=== PATIENT | female | born 1935 | race Caucasian/White ===

== ENCOUNTER 2016-11-24 12:50 | Observation (INO) | payer OTHER ==
--- NOTE | 2016-11-24 13:07 | CPEKG ---
Heart Rate: 83 RR Interval: 723 P-R Interval: 172 QRSD Interval: 82 QT Interval: 392 QTC Interval: 461 P Jenner: 76 QRS Jenner: 46 T Wave Jenner: 48 EKG Severity - NORMAL ECG - EKG Impression: SINUS RHYTHM Electronically Signed By: Mellissa Anton 24-Nov-2016 15:41:22
--- NOTE | 2016-11-24 13:18 | EDPHY ---
H & P HPI/ROS: CHIEF COMPLAINT: Dizziness HISTORY OF PRESENT ILLNESS: The patient is a 81-year-old female with history of hypertension, postoperative PE, and pacemaker for bradycardia (per her report) who presents with acute dizziness. The patient reports feeling "woozy and unstable". She denies vertigo or spinning. She felt that her gait was unsteady. She does not have headache. She denies numbness or weakness. Her blood pressure was elevated today at 189/108in triage. The patient states she took her daily Diltiazem this morning, she takes lisinopril at night. Her medication list includes Lasix but she is not taking that. She feels short of breath, particularly with exertion. This has been present for the last few weeks. She has left-sided chest pain that she feels is musculoskeletal. It is not pleuritic. Her chest pain located in the upper left lateral chest. The patient had 10 days of diarrhea after returning from [facility]. For the past week she reports infrequent bowel movements. She denies bloody stools. No urinary complaints. No headache, abdominal pain. The patient had a PE after shoulder surgery in May 2016, she has been off anticoagulants for over a month now. REVIEW OF SYSTEMS: A 10 point review of systems was performed and is negative with the exception of the elements mentioned in the history of present illness. Source: Patient, Family Exam Limitations: No limitations - Medical/Surgical History Hx Asthma: No Hx Chronic Respiratory Disease: Yes Hx Diabetes: No Hx Cardiac Disease: No Hx Renal Disease: No Hx Cirrhosis: No Hx Alcoholism: No Hx HIV/AIDS: No Hx Splenectomy or Spleen Trauma: No Other PMH: 1. restless leg syndrome. 2. Hypertension. 3. Sleep apnea. 4. Pacemaker placement. 5. Shoulder surgery. 6. PE after shoulder surgery - Social History Smoking Status: Former smoker Alcohol Use: Rarely Drug Use: None Additional Social History: . She and her spend the [place] in [place] and [place] in [place]. She is a retired nurse. - Physical Exam Exam: General Appearance: Alert, no acute distress. Blood pressure 189/108. Eyes: Pupils equal and round, no conjunctival injection, no discharge. Anicteric. No nystagmus. ENT, Mouth: Mucous membranes are moist, no oropharyngeal erythema or edema. Neck: No lymphadenopathy, supple. No jugular venous distention. Respiratory: Lungs are clear to auscultation; no wheezes, rales, or rhonchi. Cardiovascular: Regular rate and rhythm; no murmur, rub, or gallop. Gastrointestinal: Abdomen is soft and non tender, no masses or organomegaly, bowel sounds normal. Skin: Warm and dry, no rashes, normal color. Back: Nontender to palpation over the thoracolumbar spine. No CVA tenderness. Extremities: No lower extremity edema, no calf tenderness or swelling. Neurological: Alert and oriented. Moving all four extremities easily and equally. Cranial nerves II through XII are examined and are intact (visual acuity not tested). Strength is 5 over 5 bilaterally with testing of all major motor groups. Sensation is intact to light touch over all 4 extremities. Gait is initially abnormal--she is wobbly when she 1st stands up, but steadies after briefly standing at the bedside. After standing for moment she was able to ambulate normally. [id number] on the right with past-pointing past pointing. On repeat right side was improved. Left finger to nose was performed accurately. Psychiatric: Normal affect. Constitutional: Initial Vital Signs Temperature (C) 36.7 C 11/24/16 13:15 Heart Rate 80 11/24/16 13:15 Respiratory Rate 21 H 11/24/16 13:15 Blood Pressure 189/108 H 11/24/16 13:15 O2 Sat (%) 98 11/24/16 13:15 O2 Delivery Mode Room Air Allergies/Adverse Reactions: cefazolin [Cefazolin] Allergy (Severe, Verified 11/24/16 13:13) GLOSSAL EDEMA Penicillins Allergy (Severe, Verified 11/24/16 13:13) Other-Enter Comments Home Medications: Medication Instructions Recorded Cholecalciferol Vit D3 [Vitamin D3 2,000 units PO DAILY 05/04/16 (*)] Diltiazem HCl [Diltiazem 24Hr Cd] 240 mg PO DAILY 05/04/16 Docusate Sodium [Colace 100 MG (*)] 100 mg PO DAILY 05/04/16 Gabapentin [Neurontin 300 MG (*)] 300 mg PO HS 05/04/16 LORazepam [Ativan (*)] 0.5 mg PO HS 05/04/16 Lisinopril [Zestril 20 mg (*)] 20 mg PO HS 05/04/16 Hydrochlorothiazide [HCTZ (*)] 12.5 mg PO DAILY #30 cap 11/25/16 amLODIPine BESYLATE [Norvasc 5 mg 5 mg PO DAILY PRN #15 tab 11/25/16 (*)] Medical Decision Making - Diagnostics EKG Interpretation: The 12 lead EKG was interpreted by myself. See hard copy and/or "tracemaster" electronic copy for interpretation: Sinus rhythm. ED Course/Re-evaluation: The patient is a 81-year-old female with pacemaker and history of hypertension who presents with acute dizziness and some chest pain. The patient states she feels unsteady and woozy. She notes shortness of breath with exertion. She states she had chest pain 4-5 days ago. This pain was localized to the left anterior axillary line and was worse with inhalation. She no longer has chest pain at rest but it is reproducible. She has mid-epigastric tenderness and pain to the left of her sternum. According to the patient's past medical records, the patient was admitted in Apr 2016 for chest pain. She had a nuclear stress test done that was normal. Plan for cardiac workup including, EKG, labs, Troponin, and D-dimer. Patient received sublingual Nitro. Patient was hypertensive and unsteady with standing, plan for CT head. The results of the CT head were called to me by Dr. Salinas. No acute changes. Please see the full radiology report in the imaging section. I reviewed the study. 2:15 p.m.: Patients blood pressure has improved to 142/78 after Nitro. She is feeling better, dizziness has resolved. She denies chest pain at present. 2:40 p.m.: EKG is sinus. Troponin and d-dimer are negative. BNP slightly elevated but within the normal limits for her age. Lab work is normal. I discussed findings with the patient and recommended admission. Patient agrees with the plan for admission. I suspect that her dizziness is due to hypertension--it resolved when her blood pressure improved. She continues with left upper chest pain, likely not cardiac but concerning in this setting of hypertension. I think that she should have serial cardiac enzymes. Her blood pressure has remained improved, but the nitroglycerin will not provide long lasting control. I recommend continued blood pressure monitoring. 2:50 p.m.: I spoke to the hospitalist, the patient will be admitted to Dr. Tommy Hand. EACU bed requested. Differential Diagnosis: Chest pain including but not limited to myocardial ischemia, pulmonary embolus, chest wall pain, pleural inflammation and pulmonary infectious causes. Hypertension including but not limited to medication noncompliance, essential hypertension,ACS, endocrine causes, renal causes. - Data Points Laboratory Results: Laboratory Results 11/24/16 13:05 11/24/16 13:05 Medications Given: Discontinued Medications Amlodipine Besylate (Norvasc) 5 mg PO DAILY [facility] Stop: 05/24/17 08:59 Last Admin: 11/25/16 08:17 Dose: 5 mg Cholecalciferol (Vitamin D) 2,000 units PO DAILY [facility] Stop: 05/24/17 08:59 Last Admin: 11/25/16 08:17 Dose: 2,000 units Docusate Sodium (Colace) 100 mg PO DAILY [facility] Stop: 05/24/17 08:59 Last Admin: 11/25/16 08:17 Dose: 100 mg Furosemide (Lasix Injection) 20 mg IVP ONCE ONE Stop: 11/24/16 18:25 Last Admin: 11/24/16 18:33 Dose: 20 mg Gabapentin (Neurontin) 300 mg PO HS [facility] Stop: 05/23/17 20:59 Last Admin: 11/24/16 20:07 Dose: 300 mg Lisinopril (Zestril) 20 mg PO HS [facility] Stop: 05/23/17 20:59 Last Admin: 11/24/16 20:07 Dose: 20 mg Lorazepam (Ativan) 0.5 mg PO HS [facility] Stop: 05/23/17 20:59 Last Admin: 11/24/16 21:42 Dose: Not Given Nitroglycerin (Nitrostat) 0.4 mg SL Q5M PRN PRN Reason: Chest Pain Stop: 11/24/16 13:47 Last Admin: 11/24/16 13:40 Dose: 0.4 mg Departure - Departure Disposition: [facility] Acute Clinical Impression: Dizziness, Hypertensive urgency Chest pain Qualifiers: Chest pain type: other chest pain Qualified Code(s): R07.89 - Other chest pain Condition: Fair Report Scribed for: Mellissa Anton Report Scribed by: Zoraida Vidal Date of Report: 11/24/16 Time of Report: 13:10 Physician Review and Approval Statement: 11/24/16 13:10 Portions of this note were transcribed by the medical billing manager. I, Dr. Mellissa Anton, personally performed the history, physical exam, and medical decision- making; and confirmed the accuracy of the information in the transcribed note.
[2016-11-24] MEDS ORDERED: NITROGLYCERIN 0.4 MG BTL SL PRN (13:36)
[2016-11-24] MEDS ORDERED: NITROGLYCERIN 0.4 MG BTL SL ONE (13:37)
[2016-11-24 14:04] LABS: % IMMATURE GRANULYOCYTES 0.3 % (0.0-1.1); ABSOLUTE IMMATURE GRANULOCYTES 0.02 10^3/uL (0.00-0.10); ADD DIFF? NO; ADD MORPH? NO; ADD SCAN? NO; ATYPICAL LYMPHOCYTE FLAG 10 (0-99); FRAGMENT RBC FLAG 0 (0-99); HEMATOCRIT 43.9 % (38.0-47.0); HEMOGLOBIN 14.8 g/dL (12.6-16.3); LEFT SHIFT FLG 0 (0-99); LIPEMIA HEMOLYSIS FLAG 80 (0-99); MEAN CELL HEMOGLOBIN 32.1 pg (27.9-34.1); MEAN CELL HEMOGLOBIN CONCENTR. 33.7 g/dL (32.4-36.7); MEAN CELL VOLUME 95.2 fL (81.5-99.8); MEAN PLATELET VOLUME 10.2 fL (8.7-11.7); PLATELET CLUMPS FLAG 0 (0-99); PLATELET COUNT 254 10^3/uL (150-400); RED BLOOD CELL COUNT 4.61 10^6/uL (4.18-5.33); RED CELL DISTRIBUTION WIDTH 13.1 % (11.5-15.2)
[2016-11-24 14:10] LABS: ANION GAP 15 mEq/L (8-16); CALCIUM 9.7 mg/dL (8.5-10.4); CARBON DIOXIDE 24 mEq/l (22-31); CHLORIDE 104 mEq/L (97-110); GLOMERULAR FILTRATION RATE 53; GLUCOSE 94 mg/dL (70-100); POTASSIUM 4.5 mEq/L (3.5-5.2); SODIUM 143 mEq/L (134-144)
[2016-11-24 14:24] LABS: TROPONIN I < 0.012 ng/mL (0-0.034)
[2016-11-24] MEDS ORDERED: FUROSEMIDE 20 MG/2 ML VIAL IVP ONE (18:24)
[2016-11-24] MEDS ORDERED: ONDANSETRON DISINTEGRATING 4 MG TAB PO PRN (18:28)
[2016-11-24] MEDS ORDERED: ONDANSETRON 4 MG/2 ML VIAL IVP PRN (18:28)
[2016-11-24] MEDS ORDERED: ACETAMINOPHEN 325 MG TAB PO PRN (18:28)
--- NOTE | 2016-11-24 19:06 | GHP ---
[f rep st] HISTORY AND PHYSICAL DATE OF ADMISSION: 11/24/2016 HISTORY OF PRESENT ILLNESS: The patient is a pleasant 81-year-old female with a history of hyperten gilberto and pulmonary embolism, who presented to Urgent Care today with a couple weeks of increasing di zziness-like symptoms. She says the room is not spinning. She is not lightheaded, but she feels wo ozy and unstable. She has a history of hypertension. Does not check her blood pressures regularly. She was markedly hypertensive about 200/100 in triage. She has not had chest pain or other angina l symptoms. She takes diltiazem and lisinopril, and she has been compliant with them. Though she u sed to be on 40 mg of lisinopril, she is now on 20. She denies PND, orthopnea or lower extremity ed jaden. When I speak with her, she notes some palpitations described as irregular heartbeat that lasts for m inutes at a time. She does have a pacemaker. It was interrogated 7 months ago, but not recently. She also had a stress test performed in June 2016 that was negative for ischemia or infarction. REVIEW OF SYSTEMS: Complete 10-point review of systems conducted and negative, except as noted in t he HPI. PAST MEDICAL HISTORY: 1. Hypertension. 2. Diastolic dysfunction on April 2016 echo. 3. Modestly elevated right ventricular systolic pressure. 4. History of pulmonary embolism. 5. CAD by CT. 6. Sinus bradycardia with pacemaker placement. FAMILY HISTORY: Notable for hypertension. 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 ALLERGIES: Cefazolin and penicillin. HOME MEDICATIONS: Diltiazem, lisinopril, gabapentin, docusate, vitamin D3, Tylenol, q.h.s. Ativan. PHYSICAL EXAMINATION: VITAL SIGNS: Presenting vitals today were 189/108, now 153/83 with resolutio n of her symptoms, pulse 72, breathing 15 times a minute, 94% on room air. GENERAL: In no acute di stress. HEENT: Sclerae anicteric. Oropharynx clear. Mucous membranes are moist. NECK: Supple, without lymphadenopathy or JVD. LUNGS: Clear to auscultation bilaterally. HEART: S1, S2. ABDOME N: Soft, nontender, nondistended. LOWER EXTREMITIES: Without edema. Calves nontender. SKIN: Wi thout rash. NEUROLOGIC: Nonfocal. LABORATORY DATA: White count 7.2, hematocrit 43, platelets are 254,000. D-dimer 0.49. Chem 7 is n ormal. Troponin less than 0.012, BNP is 648. IMAGING: Chest x-ray, interpreted by me, shows no acute cardiopulmonary disease. There is a dual l ead pacer in place. Noncontrast head CT: Minimal atrophy. No acute hemorrhage. Minimal cerebrova scular atherosclerosis. Chest x-ray notes right humeral lucency of uncertain significance. EKG deanna ws sinus at 83 with normal axis and intervals, and no ST or T-wave changes. I have discussed the case with Dr. Mellissa Anton. ASSESSMENT AND PLAN: A 81-year-old female who presents with likely hypertensive symptoms. 1. Hypertensive encephalopathy. She has this vague dizziness, is markedly hypertensive that is imp roved. Certainly this is suggestive of hypertensive encephalopathy, although albeit not classic. I think diltiazem is not a great blood pressure medicine. Will sub out Norvasc and continue her leta nopril. The patient may have an element of diastolic heart failure, so will go ahead and give her 1 dose of IV Lasix now. 2. Question atrial fibrillation. She has possible palpitations. Will interrogate the pacer and fo llow her on telemetry. 3. Right humeral lucency. I would perform an outpatient followup film in 3-6 months. 4. Prophylaxis. Pharmacologic prophylaxis indicated if in the hospital longer than 24 hours, given her previous history of PE. Noted as a negative D-dimer here. DISPOSITION: Observation status. /[id number]/MODL
[2016-11-24 19:47] VITALS: RESP 16
[2016-11-24] MEDS ORDERED: LISINOPRIL 20 MG TAB PO SCH (21:00)
[2016-11-24] MEDS ORDERED: GABAPENTIN 300 MG CAP PO SCH (21:00)
[2016-11-24] MEDS ORDERED: LORazepam 0.5 MG TAB PO SCH (21:00)
--- NOTE | 2016-11-24 21:53 | HOSPPROG ---
Hospitalist Progress Note Assessment/Plan: nurse called to inform me that pupils asymmetric, R >L on my exam, R 4mm, L 3mm. both briskly reactive suspect more likely anisocoria than acute cva non ocn head ct neg in admit no visual complaints cannot get mri 2/2 pacer discussed w patient, nurse Objective: Vital Signs Temp Pulse Resp BP Pulse Ox 36.9 C 83 16 118/96 H 94 11/24/16 19:46 11/24/16 21:28 11/24/16 19:46 11/24/16 21:28 11/24/16 19:46 ICD10 Worksheet Patient Problems: Problems Problem Status Onset Chest pain Acute Dizziness Acute Hypertensive urgency Acute Chest pain Acute Dyspnea Acute Pulmonary emboli Acute
[2016-11-25 06:00] LABS: ANION GAP 11 mEq/L (8-16); CALCIUM 9.1 mg/dL (8.5-10.4); CARBON DIOXIDE 25 mEq/l (22-31); CHLORIDE 106 mEq/L (97-110); CREATININE 0.9 mg/dL (0.6-1.0); GLOMERULAR FILTRATION RATE > 60; GLUCOSE 75 mg/dL (70-100); POTASSIUM 3.7 mEq/L (3.5-5.2); SODIUM 142 mEq/L (134-144)
[2016-11-25 08:11] VITALS: PULSE 67; TEMP 97.9; O2SAT 96
[2016-11-25] MEDS ORDERED: DOCUSATE SODIUM 100 MG CAP PO SCH (09:00)
[2016-11-25] MEDS ORDERED: CHOLECALCIFEROL VIT D3 1,000 UNITS TAB PO SCH (09:00)
[2016-11-25] MEDS ORDERED: amLODIPine BESYLATE 5 MG TAB PO SCH (09:00)
--- NOTE | 2016-11-25 10:53 | ECHO ---
[id number] + + [address] : : [place] [address] : : [phone] + Adult Echocardiographic Report + -----+ :Name: SARA CIFUENTES SStudy Date: 11/25/2016 08:48 AM : : Hospital Admission Number: [id number] Location : 143: :: 1935 Gender: Female Height: 66 in : :Age: 81 yrs Race: WH Weight: 140 lb : :Reason For Study: Eval LV Fx : : BSA: 1.7 meters2 : :History: Hypertensive Crisis, Dizziness : + -----+ MMode/2D Measurements \\T\\ Calculations IVSd: 0.85 cm LVIDd: 4.1 cm FS: 36.8 % Ao root diam: 2.8 cm LVPWd: 0.90 cm LVIDs: 2.6 cm EDV(Teich): 74.0 ml ACS: 1.9 cm ESV(Teich): 24.4 ml EF(Teich): 67.1 % Normal Measurement Values: + + :LVIDd (3.5-5.7cm) IVSd (0.6-1.1cm) LVPWd (0.6-1.1cm) Aortic Root (2.0-3.7cm)Left Atrium (1.5-4.0cm): :LV Vol(d) (76-115ml) LV Vol(s) (29-48ml) Ejec Fraction (50-65%)PV Karlos (0.6- 1.2m/s) TV Karlos (0.4-1.0m/s) : :MV E Karlos (0.8-1.0m/s)MV A Karlos (0.3-1.0m/s)LVOT Karlos (0.7-1.2m/s) Asc Ao Karlos ( 0.9-1.8m/s) : + + Doppler Measurements \\T\\ Calculations MV E max karlos: Ao V2 max: LV V1 max: PA V2 max: 60.7 cm/sec 105.9 cm/sec 84.4 cm/sec 93.7 cm/sec MV A max karlos: Ao max P.5 mmHgLV V1 max PG: PA max P.4 cm/sec 2.8 mmHg 3.5 mmHg MV E/A: 0.72 TR max karlos: 245.7 cm/sec TR max P.1 mmHg RAP systole: 5.0 mmHg RVSP(TR): 29.1 mmHg Left Ventricle The left ventricle is normal in size. There is normal left ventricular wall thickness. The left ventricular ejection fraction is normal. There is Doppler evidence for diastolic dysfunction. Ejection Fraction = 68%. The left ventricular ejection fraction is calculated at 67.1 %. No regional wall motion abnormalities noted. Right Ventricle There is a pacemaker lead in the right ventricle. The right ventricle is normal in size and function. Atria The left atrial size is normal. Right atrial size is normal. Mitral Valve The mitral valve is normal in structure and function. There is no mitral valve stenosis. There is trace mitral regurgitation. Tricuspid Valve There is trace tricuspid regurgitation. Aortic Valve There is mild aortic valve calcification. The aortic valve is trileaflet. There is no aortic stenosis. There is no aortic insufficiency. Pulmonic Valve The pulmonic valve is not well visualized. There is no pulmonic valvular regurgitation. Great Vessels The aortic root is normal size. Pericardium/Pleural There is a fat pad seen. trivial pericardial effusion. Conclusion A complete two-dimensional transthoracic echocardiogram was performed (2D, M-mode, Doppler and color flow Doppler). (1) Left ventricular systolic ejection fraction was normal (65-70%) - normal wall motion (2) No left ventricular hypertrophy (3) Diastolic dysfunction was present (4) Normal right ventricular size and function - there was a sizable "fat pat" appreciated on this study (5) Normal atrial dimensions (6) Physiologic mitral regurgitation (7) Trileaflet aortic valve with mild sclerosis, no stenosis, no insufficiency (8) Physiologic tricuspid regurgitation - RVSP was estimated to be 29 mm Hg (9) Poor visualization of the pulmonic valve without appreciable insufficiency noted (10) There was a trivial pericardial effusion (no tamponade) (11) In comparison to prior echo from 05-05-16, there continues to be a "fat pad", but in this echo, the area in question is more pronounced. Would consider a different imaging modality to assess this finding Final Reading Physician: David White signed on 11/25/2016 10:52 AM Ordering Physician: Paul Hand Performed By: Yash Du, [facility]
--- NOTE | 2016-11-25 11:43 | GDS ---
[f rep st] DISCHARGE SUMMARY DISCHARGE DIAGNOSES: 1. Mild hypertensive encephalopathy. 2. Heart palpitations. 3. History of PE. 4. Diastolic dysfunction. 5. History of sinus bradycardia with pacemaker placement. HISTORY: This is a 81-year-old female, who has been having dizziness for the last week or 2, since she moved back from [place]. Her blood pressure in the emergency room was 189/108. HOSPITAL COURSE: The patient was admitted, and her diltiazem was switched over with Norvasc. Her b lood pressure did improve with that. However, she is having heart palpitations, and we did want to get a pacemaker interrogation today. However, she does have appointment with an communication assistant tigre t she really wants to make. At this time, I am uncomfortable discontinuing diltiazem without knowin g that she does not have atrial fibrillation. Even with benign causes of heart palpitations, may wa nt to consider some type of lyudmila blocking agent, but probably would prefer a beta betty. Thus, tk compa will be discharging her. She did have a little bit of fluid retention, and did get a little bit o f Lasix as well. Thus, I am going to add hydrochlorothiazide to her regimen. We will keep her on t he diltiazem and the lisinopril. We are going to set up an appointment with Cardiology in a couple days to get a pacemaker interrogation, and to follow up with her blood pressure. If she does not garcia ve atrial fibrillation, could possibly consider switching out diltiazem for Norvasc. And could also consider adding a small dose of beta betty. I have also given a few doses of Norvasc to take as needed if her blood pressure does spike until she can see Cardiology in 2 days. /[id number]/MODL
[2016-11-25 13:12] VITALS: BP 153/83
== END 2016-11-25 13:00 | disposition home or self-care (01) ==
LOC: CED 12:50 → CEDHOLD 14:51 → F1N 17:30
PROVIDERS: ADMIT Internal Medicine; ATTEND Internal Medicine
DX: I67.4 Hypertensive encephalopathy (principal); R00.2 Palpitations; R07.9 Chest pain, unspecified; R06.09 Other forms of dyspnea; I51.9 Heart disease, unspecified; R93.6 Abnormal findings on diagnostic imaging of limbs; G25.81 Restless legs syndrome; G47.30 Sleep apnea, unspecified; I25.10 Atherosclerotic heart disease of native coronary artery without angina pectoris; Z86.711 Personal history of pulmonary embolism; Z87.891 Personal history of nicotine dependence; Z95.0 Presence of cardiac pacemaker
CPT/HCPCS: 70450; 71020; 93005; 93306; 99285; G0378; 80048-PO; 83880-PO; 84484-PO; 85025-PO; 85378-PO

== ENCOUNTER → 2016-11-27 | Outpatient (CLI) | payer OTHER | LOC: BHFA 10:30 | PROVIDERS: ATTEND Internal Medicine Cardiovascular Disease | DX: R42 Dizziness and giddiness (principal); I11.9 Hypertensive heart disease without heart failure; R00.1 Bradycardia, unspecified ==

== ENCOUNTER → 2017-01-20 | Outpatient (CLI) | payer OTHER | LOC: CIMAGING 10:39 | PROVIDERS: ATTEND Family Medicine | DX: R07.81 Pleurodynia (principal); Z95.0 Presence of cardiac pacemaker | CPT/HCPCS: 71111-PO ==

== ENCOUNTER → 2017-01-23 | Outpatient (CLI) | payer OTHER | LOC: FIMAGING 11:20 | PROVIDERS: ATTEND Family Medicine | DX: Z13.820 Encounter for screening for osteoporosis (principal); M81.0 Age-related osteoporosis without current pathological fracture; Z82.62 Family history of osteoporosis; Z78.0 Asymptomatic menopausal state ==

== ENCOUNTER → 2017-02-04 | Outpatient (CLI) | payer OTHER | LOC: FIMAGING 12:30 | PROVIDERS: ATTEND Internal Medicine Cardiovascular Disease | DX: N18.9 Chronic kidney disease, unspecified (principal); I11.9 Hypertensive heart disease without heart failure; Z95.0 Presence of cardiac pacemaker ==

== ENCOUNTER → 2017-02-05 | Outpatient (CLI) | payer OTHER | LOC: CIMAGING 09:45 | PROVIDERS: ATTEND Family Medicine | DX: Z12.31 Encounter for screening mammogram for malignant neoplasm of breast (principal); Z80.3 Family history of malignant neoplasm of breast | CPT/HCPCS: G0202 ==

== ENCOUNTER → 2017-02-08 | Outpatient (CLI) | payer OTHER ==
[~2017-02-08] MED LIST: IOPAMIDOL (ISOVUE-300) 100 ML BTL ONE
== END ==
LOC: FIMAGING 08:50
PROVIDERS: ATTEND Family Medicine
DX: R91.1 Solitary pulmonary nodule (principal)
CPT/HCPCS: 71260; Q9967

== ENCOUNTER → 2017-03-09 | Outpatient (CLI) | payer OTHER | LOC: BHFA 15:00 | PROVIDERS: ATTEND Internal Medicine Cardiovascular Disease | DX: I47.2 Ventricular tachycardia (principal) ==

== ENCOUNTER → 2017-03-11 | Outpatient (CLI) | payer OTHER ==
[~2017-03-11] MED LIST changes: -IOPAMIDOL (ISOVUE-300) 100 ML BTL ONE; +IOPAMIDOL (ISOVUE-M 200) 20 ML VIAL ONE; +LIDOCAINE 1% 300 MG/30 ML SDV ONE
== END ==
LOC: FIMAGING 08:46
PROVIDERS: ATTEND Neurological Surgery
PROC: B01B1ZZ Fluoroscopy of Spinal Cord using Low Osmolar Contrast (ICD-10-PCS; principal; 2017-03-11)
DX: M51.34 Other intervertebral disc degeneration, thoracic region (principal); M51.36 Other intervertebral disc degeneration, lumbar region; M51.26 Other intervertebral disc displacement, lumbar region; M48.04 Spinal stenosis, thoracic region; M48.06 Spinal stenosis, lumbar region
CPT/HCPCS: 62305; 72129; 72132; 72255; Q9966

== ENCOUNTER 2017-07-21 14:34 | Emergency (ER) | payer OTHER ==
[2017-07-21 14:53] VITALS: TEMP 97.7
--- NOTE | 2017-07-21 15:15 | EDPHY ---
H & P Time Seen by Provider: 07/21/17 15:13 HPI/ROS: Chief complaint. High blood pressure HPI. 81-year-old female presents emergency department with lightheadedness for 2-3 days. She took her blood pressure today and it was 180/101. She has had heaviness in her chest for 2 days with slight shortness of breath. She has dyspnea on exertion. She has been without her lisinopril for 3 weeks. Her chest discomfort is not worse with exertion or deep breathing but she has worsening breathing with exertion. She feels slightly unstable on her feet for 2 days. No fever. No abdominal pain vomiting or diarrhea. No unusual leg pain or swelling ROS Constitutional. no fever/chills, no weakness Eyes. no problems with vision ENT. no sore throat, no nasal drainage Cardiovascular. Chest heaviness Respiratory. Dyspnea on exertion Abdominal. no abdominal pain, no nausea/vomiting, no diarrhea . no problems urinating MS. no calf pain/swelling, no neck/back pain, no joint pain Skin. no rash Lymph. no swollen glands Neuro. Lightheaded and slightly unstable on feet Past Medical/Surgical History: Past medical history significant for PE, restless leg syndrome, hypertension, sleep apnea, pacemaker Social History: , nonsmoker, no alcohol Smoking Status: Former smoker Physical Exam: General Appearance: Alert well-developed female mild distress vital signs significant for blood pressure 193/115 Eyes: Pupils equal and round no pallor or injection. ENT, Mouth: Mucous membranes are moist. Respiratory: There are no retractions, lungs are clear to auscultation. Cardiovascular: Regular rate and rhythm. Gastrointestinal: Abdomen is soft and nontender, no masses, bowel sounds normal. Neurological: Awake and alert, sensory and motor exams grossly normal. Skin: Warm and dry, no rashes. Musculoskeletal: Neck is supple nontender. Extremities symmetrical, full range of motion. Psychiatric: Patient is oriented X 3, there is no agitation. Constitutional: Initial Vital Signs Temperature (C) 36.5 C 07/21/17 14:50 Heart Rate 85 07/21/17 14:50 Respiratory Rate 16 07/21/17 14:50 Blood Pressure 193/115 H 07/21/17 14:50 O2 Sat (%) 97 07/21/17 14:50 O2 Delivery Mode Room Air Allergies/Adverse Reactions: cefazolin [Cefazolin] Allergy (Severe, Verified 07/21/17 14:49) GLOSSAL EDEMA Penicillins Allergy (Severe, Verified 07/21/17 14:49) Other-Enter Comments Home Medications: Medication Instructions Recorded Cholecalciferol Vit D3 [Vitamin D3 2,000 units PO DAILY 05/04/16 (*)] Diltiazem HCl [Diltiazem 24Hr Cd] 120 mg PO DAILY 05/04/16 Gabapentin [Neurontin 300 MG (*)] 600 mg PO HS 05/04/16 LORazepam [Ativan (*)] 0.5 mg PO HS 05/04/16 Lisinopril [Zestril 20 mg (*)] 20 mg PO HS 05/04/16 Atorvastatin Calcium 40 mg 03/04/17 Lisinopril [Zestril 20 mg (*)] 20 mg PO DAILY #14 tab 07/21/17 Medical Decision Making - Diagnostics EKG Interpretation: EKG interpreted by me shows normal sinus rhythm with normal interval. There is left axis deviation. QRS shows evidence of anterior septal infarct. There is no significant ST elevation or depression. No arrhythmia. The rate is 78 Comparison to previous EKG in November 2016 shows really no significant change other than maybe worse left axis deviation. Imaging Results: Imaging Impressions Chest X-Ray 07/21/17 16:11 Impression: Mild atelectasis in the left lower lobe. Chronic findings as above. Chest/Thorax CTA 07/21/17 16:48 Impression: 1. No evidence of pulmonary thromboembolic disease. 2. Minimal diskoid atelectasis or scarring left lower lobe. 3. Other chronic findings, as above. Results called and discussed with Issa Espinoza M.D., on July 21, 2017 at 1744. E:amm Procedures: IV normal saline, monitor. Aspirin in the emergency department. Lisinopril 20 mg orally. ED Course/Re-evaluation: Re-evaluation at 4:45 p.m.. Patient is stable. Blood pressure 180/82. Patient and I discussed laboratory evaluation and elevated D-dimer. I recommended chest CT with IV contrast and she agrees. Indication for chest CT is previous pulmonary embolus, new dyspnea on exertion and chest discomfort with elevated D-dimer Repeat troponin and EKG are normal Re-evaluation at 7:50 p.m.. Patient is stable. She and I and discussed imaging and lab results. We discussed treatment plan including criteria for return importance of follow-up and further evaluation. They expressed understanding and agreement There returning to [place] tomorrow and she is encouraged to follow up with her regular physician upon return home Differential Diagnosis: I considered acute coronary syndrome, urgent hypertension, pulmonary embolus - Data Points Laboratory Results: Laboratory Results 07/21/17 15:25 07/21/17 15:25 07/21/17 07/21/17 07/21/17 19:05 15:25 15:25 WBC RBC Hgb Hct MCV MCH MCHC RDW Plt Count MPV Neut % (Auto) Lymph % (Auto) [place] % (Auto) Eos % (Auto) Baso % (Auto) Nucleat RBC Rel Count Absolute Neuts (auto) Absolute Lymphs (auto) Absolute Monos (auto) Absolute Eos (auto) Absolute Basos (auto) Absolute Nucleated RBC Immature Gran % Immature Gran # D-Dimer 0.79 ug/mLFEU H ug/mLFEU (0.00-0.50) Sodium 142 mEq/L mEq/L (134-144) Potassium 4.0 mEq/L mEq/L (3.5-5.2) Chloride 106 mEq/L mEq/L (97-110) Carbon Dioxide 23 mEq/l mEq/l (22-31) Anion Gap 13 mEq/L mEq/L (8-16) BUN 24 mg/dL H mg/dL (7-23) Creatinine 1.0 mg/dL mg/dL (0.6-1.0) Estimated GFR 53 Glucose 87 mg/dL mg/dL (70-100) Calcium 9.9 mg/dL mg/dL (8.5-10.4) Troponin I < 0.012 ng/mL ng/mL < 0.012 ng/mL ng/mL (0.000-0.034) (0.000-0.034) 07/21/17 15:25 WBC 8.50 10^3/uL 10^3/uL (3.80-9.50) RBC 4.71 10^6/uL 10^6/uL (4.18-5.33) Hgb 15.1 g/dL g/dL (12.6-16.3) Hct 44.5 % % (38.0-47.0) MCV 94.5 fL fL (81.5-99.8) MCH 32.1 pg pg (27.9-34.1) MCHC 33.9 g/dL g/dL (32.4-36.7) RDW 13.2 % % (11.5-15.2) Plt Count 233 10^3/uL 10^3/uL (150-400) MPV 10.1 fL fL (8.7-11.7) Neut % (Auto) 63.6 % % (39.3-74.2) Lymph % (Auto) 23.6 % % (15.0-45.0) [place] % (Auto) 9.8 % % (4.5-13.0) Eos % (Auto) 1.8 % % (0.6-7.6) Baso % (Auto) 0.8 % % (0.3-1.7) Nucleat RBC Rel Count 0.0 % % (0.0-0.2) Absolute Neuts (auto) 5.41 10^3/uL 10^3/uL (1.70-6.50) Absolute Lymphs (auto) 2.01 10^3/uL 10^3/uL (1.00-3.00) Absolute Monos (auto) 0.83 10^3/uL H 10^3/uL (0.30-0.80) Absolute Eos (auto) 0.15 10^3/uL 10^3/uL (0.03-0.40) Absolute Basos (auto) 0.07 10^3/uL 10^3/uL (0.02-0.10) Absolute Nucleated RBC 0.00 10^3/uL 10^3/uL (0-0.01) Immature Gran % 0.4 % % (0.0-1.1) Immature Gran # 0.03 10^3/uL 10^3/uL (0.00-0.10) D-Dimer Sodium Potassium Chloride Carbon Dioxide Anion Gap BUN Creatinine Estimated GFR Glucose Calcium Troponin I Medications Given: Discontinued Medications Aspirin (Aspirin) 324 mg PO EDNOW ONE Stop: 07/21/17 16:11 Last Admin: 07/21/17 16:26 Dose: 324 mg Sodium Chloride (Ns) 1,000 mls @ 0 mls/hr IV ONCE ONE; Wide Open PRN Reason: Protocol Stop: 07/21/17 16:48 Last Admin: 07/21/17 17:44 Dose: 1,000 mls Lisinopril (Zestril) 20 mg PO EDNOW ONE Stop: 07/21/17 16:12 Last Admin: 07/21/17 16:26 Dose: 20 mg Departure - Departure Disposition: Home, Routine, Self-Care Clinical Impression: Hypertension Qualifiers: Hypertension type: essential hypertension Qualified Code(s): I10 - Essential ( primary) hypertension Condition: Good Instructions: Hypertension (ED) Additional Instructions: Start taking the lisinopril 20 mg daily. This may not be enough for your blood pressure and may need further medication to bring her blood pressure under optimum and control. Return tonight for chest discomfort trouble breathing. Follow up with your physician upon return to [place] Referrals: Nicole Mora MD [Primary Care Provider] - As per Instructions Prescriptions: Lisinopril [Zestril 20 mg (*)] 20 mg PO DAILY #14 tab
--- NOTE | 2017-07-21 15:25 | CPEKG ---
Heart Rate: 78 RR Interval: 769 P-R Interval: 172 QRSD Interval: 80 QT Interval: 400 QTC Interval: 456 P [place]: 66 QRS [place]: 8 T Wave [place]: 25 EKG Severity - ABNORMAL ECG - EKG Impression: SINUS RHYTHM EKG Impression: CONSIDER ANTEROSEPTAL INFARCT Electronically Signed By: Issa Espinoza 21-Jul-2017 21:51:44
[2017-07-21] MEDS ORDERED: ASPIRIN 81 MG CHEWABLE TAB PO ONE (16:10)
[2017-07-21] MEDS ORDERED: LISINOPRIL 20 MG TAB PO ONE ×2 (16:11→20:09)
[2017-07-21 16:16] LABS: PLATELET COUNT 233 10^3/uL (150-400)
[2017-07-21] MEDS ORDERED: NS 1,000 ML IV ONE (16:47)
[2017-07-21] MEDS ORDERED: IOPAMIDOL (ISOVUE 370) 100 ML BTL IV ONE ×2 (16:56→17:17)
--- NOTE | 2017-07-21 19:15 | CPEKG ---
Heart Rate: 65 RR Interval: 923 P-R Interval: 180 QRSD Interval: 80 QT Interval: 440 QTC Interval: 458 P [place]: 60 QRS [place]: 17 T Wave [place]: 29 EKG Severity - ABNORMAL ECG - EKG Impression: SINUS RHYTHM EKG Impression: PROBABLE ANTEROSEPTAL INFARCT, AGE INDETERM Electronically Signed By: Issa Espinoza 21-Jul-2017 21:51:41
[2017-07-21 19:53] VITALS: BP 212/102; PULSE 85; RESP 18; O2SAT 96
== END 2017-07-21 20:17 | disposition home or self-care (01) ==
DX: I10 Essential (primary) hypertension (principal); E86.9 Volume depletion, unspecified; Z87.891 Personal history of nicotine dependence; Z95.0 Presence of cardiac pacemaker
CPT/HCPCS: 71010; 71275; 93005; 96360; 99285; Q9967

== ENCOUNTER 2017-09-19 17:33 | Emergency (ER) | payer OTHER ==
[2017-09-19 17:37] VITALS: TEMP 98.1
[2017-09-19] MEDS ORDERED: LORazepam 2 MG/ML INJ IVP ONE (18:15)
[2017-09-19] MEDS ORDERED: NS 1,000 ML IV ONE ×2 (18:15→19:00)
--- NOTE | 2017-09-19 18:15 | EDPHY ---
H & P Time Seen by Provider: 09/19/17 17:46 HPI/ROS: Chief complaint. Hypertension HPI. Patient is a 81-year-old female with history of hypertension and feels that her blood pressure has been poorly controlled over the last 4 5 days since she [place] in the winter time they live in [place] and the patient had and her have just been in [place] for the last several weeks. She has been taking extra diltiazem and lisinopril. 3 hr ago she took Tylenol Sinus medication for what she felt is a sinus infection. She noted that her blood pressure was 200/102. She complains of a generalized headache that has been present again for the last several days since she [place]. She also complains of tightness in her chest. She has had heaviness left anterior chest without radiation for the last 2 days. It is worse with exertion. ROS Constitutional. no fever/chills, no weakness Eyes. no problems with vision ENT. no sore throat, no nasal drainage Cardiovascular. Chest pressure Respiratory. no shortness of breath, no cough Abdominal. no abdominal pain, no nausea/vomiting, no diarrhea . no problems urinating MS. no calf pain/swelling, no neck/back pain, no joint pain Skin. no rash Lymph. no swollen glands Neuro. Headache Past Medical/Surgical History: Hypertension, restless leg syndrome, sleep apnea, pacemaker, shoulder surgery, PE after shoulder surgery Social History: , nonsmoker, no alcohol Smoking Status: Former smoker Physical Exam: General Appearance: Alert well-developed female moderate distress vital signs significant for blood pressure 169 over Eyes: Pupils equal and round no pallor or injection. ENT, Mouth: Mucous membranes are moist. Respiratory: There are no retractions, lungs are clear to auscultation. Cardiovascular: Regular rate and rhythm. Gastrointestinal: Abdomen is soft and nontender, no masses, bowel sounds normal. Neurological: Awake and alert, sensory and motor exams grossly normal. Skin: Warm and dry, no rashes. Musculoskeletal: Neck is supple nontender. Extremities symmetrical, full range of motion. Psychiatric: Patient is oriented X 3, there is no agitation. Constitutional: Initial Vital Signs Temperature (C) 36.7 C 09/19/17 17:36 Heart Rate 88 09/19/17 17:36 Respiratory Rate 18 09/19/17 17:36 Blood Pressure 169/98 H 09/19/17 17:36 O2 Sat (%) 97 09/19/17 17:36 O2 Delivery Mode Room Air Allergies/Adverse Reactions: cefazolin [Cefazolin] Allergy (Severe, Verified 09/19/17 17:34) GLOSSAL EDEMA Penicillins Allergy (Severe, Verified 09/19/17 17:34) Other-Enter Comments Home Medications: Medication Instructions Recorded Cholecalciferol Vit D3 [Vitamin D3 2,000 units PO DAILY 05/04/16 (*)] Diltiazem HCl [Diltiazem 24Hr Cd] 120 mg PO DAILY 05/04/16 Gabapentin [Neurontin 300 MG (*)] 600 mg PO HS 05/04/16 LORazepam [Ativan (*)] 0.5 mg PO HS 05/04/16 Lisinopril [Zestril 20 mg (*)] 20 mg PO HS 05/04/16 Atorvastatin Calcium 40 mg 03/04/17 Medical Decision Making - Diagnostics EKG Interpretation: EKG interpreted by me shows normal sinus rhythm normal interval and axis. QRS is otherwise unremarkable. No significant ST elevation or depression. No arrhythmia. The rate is 68 Not changed from previous EKG in June 2017 Imaging Results: Imaging Impressions Head CT 09/19/17 18:15 Impression: 1. No acute intracranial findings. 2. Diffuse cerebral atrophy with periventricular and subcortical low attenuation consistent with chronic microvascular ischemic gliosis. Findings discussed with Issa Espinoza MD on September 19, 2017 at [address] reviewed by me and discussed with Dr. Galeana is nonacute Procedures: IV normal saline. Ativan IV. Tylenol orally ED Course/Re-evaluation: Ale exam at 8:30 p.m.. Patient is stable. She and I discussed imaging lab EKG results. We discussed treatment plan including importance of follow-up and further evaluation. She expresses understanding and agreement Patient initially had a headache she had been given Tylenol and lorazepam orally. She is given a Percocet. Her symptoms improved and resolved Differential Diagnosis: Patient has an elevated BUN and creatinine. She has had this before with similar numbers. However she was also seen in June with fairly normal renal function. This certainly may be some dehydration. She is given a 2nd L of saline No evidence of acute coronary syndrome, intracranial bleeding, sinusitis, pneumonia. - Data Points Laboratory Results: Laboratory Results 09/19/17 18:15 09/19/17 18:15 09/19/17 09/19/17 18:15 18:15 WBC 9.42 10^3/uL 10^3/uL (3.80-9.50) RBC 4.61 10^6/uL 10^6/uL (4.18-5.33) Hgb 14.6 g/dL g/dL (12.6-16.3) Hct 44.2 % % (38.0-47.0) MCV 95.9 fL fL (81.5-99.8) MCH 31.7 pg pg (27.9-34.1) MCHC 33.0 g/dL g/dL (32.4-36.7) RDW 13.1 % % (11.5-15.2) Plt Count 241 10^3/uL 10^3/uL (150-400) MPV 9.9 fL fL (8.7-11.7) Neut % (Auto) 64.9 % % (39.3-74.2) Lymph % (Auto) 22.4 % % (15.0-45.0) [place] % (Auto) 9.3 % % (4.5-13.0) Eos % (Auto) 2.4 % % (0.6-7.6) Baso % (Auto) 0.7 % % (0.3-1.7) Nucleat RBC Rel Count 0.0 % % (0.0-0.2) Absolute Neuts (auto) 6.10 10^3/uL 10^3/uL (1.70-6.50) Absolute Lymphs (auto) 2.11 10^3/uL 10^3/uL (1.00-3.00) Absolute Monos (auto) 0.88 10^3/uL H 10^3/uL (0.30-0.80) Absolute Eos (auto) 0.23 10^3/uL 10^3/uL (0.03-0.40) Absolute Basos (auto) 0.07 10^3/uL 10^3/uL (0.02-0.10) Absolute Nucleated RBC 0.00 10^3/uL 10^3/uL (0-0.01) Immature Gran % 0.3 % % (0.0-1.1) Immature Gran # 0.03 10^3/uL 10^3/uL (0.00-0.10) Sodium 145 mEq/L mEq/L (135-145) Potassium 3.9 mEq/L mEq/L (3.5-5.2) Chloride 106 mEq/L mEq/L (97-110) Carbon Dioxide 21 mEq/l L mEq/l (22-31) Anion Gap 18 mEq/L H mEq/L (8-16) BUN 41 mg/dL H mg/dL (7-23) Creatinine 1.3 mg/dL H mg/dL (0.6-1.0) Estimated GFR 40 Glucose 102 mg/dL H mg/dL (70-100) Calcium 9.9 mg/dL mg/dL (8.5-10.4) Troponin I < 0.012 ng/mL ng/mL (0.000-0.034) Medications Given: Discontinued Medications Acetaminophen (Tylenol) 1,000 mg PO EDNOW ONE Stop: 09/19/17 18:17 Last Admin: 09/19/17 18:29 Dose: 1,000 mg Sodium Chloride (Ns) 1,000 mls @ 0 mls/hr IV ONCE ONE; Wide Open PRN Reason: Protocol Stop: 09/19/17 18:16 Last Admin: 09/19/17 18:28 Dose: 1,000 mls Sodium Chloride (Ns) 1,000 mls @ 0 mls/hr IV ONCE ONE; Wide Open PRN Reason: Protocol Stop: 09/19/17 19:01 Last Admin: 09/19/17 19:06 Dose: 1,000 mls Lorazepam (Ativan Injection) 1 mg IVP EDNOW ONE Stop: 09/19/17 18:16 Last Admin: 09/19/17 18:29 Dose: 1 mg Ondansetron HCl (Zofran Odt) 4 mg PO EDNOW ONE Stop: 09/19/17 19:48 Last Admin: 09/19/17 19:50 Dose: 4 mg Oxycodone/Acetaminophen (Percocet 5/325) 1 tab PO EDNOW ONE Stop: 09/19/17 19:47 Last Admin: 09/19/17 19:50 Dose: 1 tab Departure - Departure Disposition: Home, Routine, Self-Care Clinical Impression: Hypertension Qualifiers: Hypertension type: unspecified Qualified Code(s): I10 - Essential (primary) hypertension Condition: Good Instructions: Hypertension (ED) Additional Instructions: Drink plenty of fluids and stay hydrated. Tylenol and ibuprofen as needed for headache. Continue your regular medications. Call Dr. Mora to make an appointment to be seen in the next 2-3 days without fail. Return for worsening symptoms Referrals: Nicole Mora MD [Primary Care Provider] - 2-3 days without fail
[2017-09-19] MEDS ORDERED: ACETAMINOPHEN 500 MG TAB PO ONE (18:16)
[2017-09-19 18:25] LABS: PLATELET COUNT 241 10^3/uL (150-400)
--- NOTE | 2017-09-19 18:26 | CPEKG ---
Heart Rate: 68 RR Interval: 882 P-R Interval: 196 QRSD Interval: 86 QT Interval: 420 QTC Interval: 447 P [place]: 70 QRS [place]: 31 T Wave [place]: 37 EKG Severity - ABNORMAL ECG - EKG Impression: SINUS RHYTHM EKG Impression: PROBABLE ANTEROSEPTAL INFARCT, AGE INDETERM Electronically Signed By: Issa Espinoza 19-Sep-2017 18:31:20
[2017-09-19] MEDS ORDERED: OXYCODONE/APAP 5/325 TAB PO ONE (19:46)
[2017-09-19] MEDS ORDERED: ONDANSETRON DISINTEGRATING 4 MG TAB PO ONE (19:47)
[2017-09-19 20:51] VITALS: BP 167/81; PULSE 63; RESP 16; O2SAT 95
== END 2017-09-19 20:57 | disposition home or self-care (01) ==
DX: I10 Essential (primary) hypertension (principal); E86.9 Volume depletion, unspecified; Z87.891 Personal history of nicotine dependence; Z95.0 Presence of cardiac pacemaker
CPT/HCPCS: 70450; 93005; 96361; 96374; 99285; J2060

== ENCOUNTER 2017-09-29 20:47 | Emergency (ER) | payer OTHER ==
--- NOTE | 2017-09-29 21:05 | EDPHY ---
H & P Stated Complaint: Weakness, fatigue, headache, dx walking pneumonia Source: Patient Exam Limitations: No limitations - Personal History Current Tetanus Diphtheria and Acellular Pertussis (TDAP): Yes - Medical/Surgical History Hx Asthma: No Hx Chronic Respiratory Disease: No Hx Diabetes: No Hx Cardiac Disease: Yes Hx Renal Disease: No Hx Cirrhosis: No Hx Alcoholism: No Hx HIV/AIDS: No Hx Splenectomy or Spleen Trauma: No Other PMH: 1. restless leg syndrome. 2. Hypertension. 3. Sleep apnea. 4. Pacemaker placement. 5. Shoulder surgery. 6. PE after shoulder surgery - Social History Smoking Status: Former smoker Time Seen by Provider: 09/29/17 20:56 HPI/ROS: CHIEF COMPLAINT: Headache, neck pain, fatigue, difficult to manage blood pressure HISTORY OF PRESENT ILLNESS: The patient presents to the ED with several weeks of headache, neck pain, fatigue and difficulty manage blood pressure. She was seen in the emergency department at the end of August with similar complaints. At that point time she underwent a negative noncontrast head CT scan. The patient denies any history of fall or trauma. She complains of a 9/ 10 frontal headache with associated neck pain. REVIEW OF SYSTEMS: A comprehensive 10 point review of systems is otherwise negative aside from elements mentioned in the history of present illness. (Sae Hayes) - Physical Exam Exam: General Appearance: Alert, mild discomfort secondary to pain Eyes: Pupils equal and round no pallor or injection ENT, Mouth: Mucous membranes moist Respiratory: There are no retractions, lungs are clear to auscultation Cardiovascular: Regular rate and rhythm Gastrointestinal: Abdomen is soft and nontender, no masses, bowel sounds normal Neurological: Alert and oriented x4, cranial nerves 2-12 intact, 5/5 strength all 4 extremities, normal sensory exam Skin: Warm and dry, no rashes Musculoskeletal: Neck is supple nontender Extremities: symmetrical, full range of motion (Sae Hayes) Constitutional: Initial Vital Signs Temperature (C) 36.4 C 09/29/17 20:48 Heart Rate 121 H 09/29/17 20:48 Respiratory Rate 22 H 09/29/17 20:48 Blood Pressure 185/103 H 09/29/17 20:48 O2 Sat (%) 99 09/29/17 20:48 O2 Delivery Mode Room Air Allergies/Adverse Reactions: cefazolin [Cefazolin] Allergy (Severe, Verified 09/29/17 20:48) GLOSSAL EDEMA Penicillins Allergy (Severe, Verified 09/29/17 20:48) Other-Enter Comments Home Medications: Medication Instructions Recorded Cholecalciferol Vit D3 [Vitamin D3 2,000 units PO DAILY 05/04/16 (*)] Diltiazem HCl [Diltiazem 24Hr Cd] 120 mg PO DAILY 05/04/16 Gabapentin [Neurontin 300 MG (*)] 600 mg PO HS 05/04/16 LORazepam [Ativan (*)] 0.5 mg PO HS 05/04/16 Lisinopril [Zestril 20 mg (*)] 20 mg PO HS 05/04/16 Atorvastatin Calcium 40 mg 03/04/17 Medical Decision Making - Diagnostics Imaging Results: Imaging Impressions Head CT 09/29/17 21:34 Impression: Senescent features, with no acute intracranial abnormality identified on this unenhanced CT evaluation, or substantial change from 2017. If there is further clinical concern regarding the patient's symptoms, MR imaging is suggested, if not otherwise contraindicated. Findings were discussed with Sae Hayes MD at 22:41, on 09/29/2017. Head CTA 09/29/17 21:34 Impression: 1. There is no hemodynamically significant ICA stenosis. 2. Patent vertebral arteries. CT ANGIOGRAPHY OF THE BRAIN: The major vessels of the [place] are well visualized, and there is no aneurysm, vascular malformation, flow-limiting stenosis, or acute occlusion identified. The distal cervical, petrous, cavernous , and supraclinoid portions of the internal carotid arteries are patent. The A1 and A2 segments are patent as is the small anterior communicating artery, and there is also patency of the M1, M2, and M3 trifurcation vessels. With regards to the posterior circulation, the distal vertebral arteries are patent. The right posterior inferior cerebellar is patent, however the left PICA is a vessel which cannot be identified, however this observation is similar to the 2015 study. The right and left anterior inferior cerebellar arteries are patent. The basilar artery is patent, and provides inflow to the superior cerebellar arteries. The right and the left posterior cerebral arteries fill via large posterior communicating arteries ( circulatory variants). The dural venous sinuses appear patent. Impression: 1. Stable CT angiography of the brain compared to 2015 study, with an inability to identify the left PICA. 2. There is no evidence of intra-arterial thrombus or acute dissection. CT Source Data: There are some dependent changes seen posteriorly in the superior segments of the right and left lower lobes. The lung apices are clear. The visualized superior mediastinal structures are unremarkable. The thyroid gland appears normal. The aerodigestive tract is unremarkable. There are degenerative changes with moderate disk space narrowing and ventral and dorsal traction osteophytes at C5-C6; moderate left and severe right neural foraminal stenoses are seen at C5-C6 secondary to uncovertebral degenerative spondylosis. There is multilevel facet hypertrophy, asymmetrically enlarged on the right at C3-C4 and C4-C5, and on the left at C6-C7. Measurement of carotid stenosis is based on the residual internal carotid diameter with [place] Symptomatic Carotid Endarterectomy Trial (NASCET) based stenosis levels. Findings were discussed with Sae Hayes MD at 22:57, on 09/29/2017. Neck CTA 09/29/17 21:34 Impression: 1. There is no hemodynamically significant ICA stenosis. 2. Patent vertebral arteries. CT ANGIOGRAPHY OF THE BRAIN: The major vessels of the [place] are well visualized, and there is no aneurysm, vascular malformation, flow-limiting stenosis, or acute occlusion identified. The distal cervical, petrous, cavernous , and supraclinoid portions of the internal carotid arteries are patent. The A1 and A2 segments are patent as is the small anterior communicating artery, and there is also patency of the M1, M2, and M3 trifurcation vessels. With regards to the posterior circulation, the distal vertebral arteries are patent. The right posterior inferior cerebellar is patent, however the left PICA is a vessel which cannot be identified, however this observation is similar to the 2015 study. The right and left anterior inferior cerebellar arteries are patent. The basilar artery is patent, and provides inflow to the superior cerebellar arteries. The right and the left posterior cerebral arteries fill via large posterior communicating arteries ( circulatory variants). The dural venous sinuses appear patent. Impression: 1. Stable CT angiography of the brain compared to 2015 study, with an inability to identify the left PICA. 2. There is no evidence of intra-arterial thrombus or acute dissection. CT Source Data: There are some dependent changes seen posteriorly in the superior segments of the right and left lower lobes. The lung apices are clear. The visualized superior mediastinal structures are unremarkable. The thyroid gland appears normal. The aerodigestive tract is unremarkable. There are degenerative changes with moderate disk space narrowing and ventral and dorsal traction osteophytes at C5-C6; moderate left and severe right neural foraminal stenoses are seen at C5-C6 secondary to uncovertebral degenerative spondylosis. There is multilevel facet hypertrophy, asymmetrically enlarged on the right at C3-C4 and C4-C5, and on the left at C6-C7. Measurement of carotid stenosis is based on the residual internal carotid diameter with [place] Symptomatic Carotid Endarterectomy Trial (NASCET) based stenosis levels. Findings were discussed with Sae Hayes MD at 22:57, on 09/29/2017. ED Course/Re-evaluation: The patient presents to the ED with multiple complaints including a bifrontal headache, neck pain and nausea. The patient was recently diagnosed with a possible pneumonia and treated with antibiotics and an inhaler. She was in the emergency department several days ago with elevated blood pressure and headache she had an unremarkable noncontrast head CT scan at that point time. The patient was noted to be afebrile with no meningeal symptoms upon arrival. Her neurologic examination is normal. She did have slightly elevated blood pressure. Patient had an IV established. She received 1 mg of Ativan, 4 mg of morphine and 4 mg of Zofran. She was taken for noncontrast head CT scan which demonstrates no evidence of intracranial hemorrhage. I re-evaluated the patient at 10:50 a.m. And she is feeling better. She is currently complaining of a bifrontal headache with some discomfort along her temporal artery bilaterally. I have ordered a ESR which is pending at this point time. My plan would be to discharge the patient to home if her CT angiogram studies are normal. I would like her to follow up with her primary care provider and our on-call neurologist for further evaluation of her headache. (Sae Hayes) [id number]: Patient's ESR is noted to be 12. Not elevated. I did go and see and re- evaluate her. She is feeling much better she is requesting be discharged home. She no longer has a headache. I explained that her ESR is negative. I discussed return precautions with her she understands return emergency room she has worsening headache vomiting fever questions or concerns or visual disturbance. (Praneeth Streeter) - Data Points Laboratory Results: Laboratory Results 09/29/17 21:10 09/29/17 21:10 09/29/17 09/29/17 21:10 21:10 WBC 6.55 10^3/uL 10^3/uL (3.80-9.50) RBC 4.87 10^6/uL 10^6/uL (4.18-5.33) Hgb 15.5 g/dL g/dL (12.6-16.3) Hct 46.0 % % (38.0-47.0) MCV 94.5 fL fL (81.5-99.8) MCH 31.8 pg pg (27.9-34.1) MCHC 33.7 g/dL g/dL (32.4-36.7) RDW 13.2 % % (11.5-15.2) Plt Count 304 10^3/uL 10^3/uL (150-400) MPV 10.1 fL fL (8.7-11.7) Neut % (Auto) 85.6 % H % (39.3-74.2) Lymph % (Auto) 11.8 % L % (15.0-45.0) [place] % (Auto) 1.8 % L % (4.5-13.0) Eos % (Auto) 0.0 % L % (0.6-7.6) Baso % (Auto) 0.2 % L % (0.3-1.7) Nucleat RBC Rel Count 0.0 % % (0.0-0.2) Absolute Neuts (auto) 5.61 10^3/uL 10^3/uL (1.70-6.50) Absolute Lymphs (auto) 0.77 10^3/uL L 10^3/uL (1.00-3.00) Absolute Monos (auto) 0.12 10^3/uL L 10^3/uL (0.30-0.80) Absolute Eos (auto) 0.00 10^3/uL L 10^3/uL (0.03-0.40) Absolute Basos (auto) 0.01 10^3/uL L 10^3/uL (0.02-0.10) Absolute Nucleated RBC 0.00 10^3/uL 10^3/uL (0-0.01) Immature Gran % 0.6 % % (0.0-1.1) Immature Gran # 0.04 10^3/uL 10^3/uL (0.00-0.10) ESR 12 MM/HR MM/HR (0-30) Sodium 143 mEq/L mEq/L (135-145) Potassium 4.1 mEq/L mEq/L (3.5-5.2) Chloride 107 mEq/L mEq/L (97-110) Carbon Dioxide 19 mEq/l L mEq/l (22-31) Anion Gap 17 mEq/L H mEq/L (8-16) BUN 31 mg/dL H mg/dL (7-23) Creatinine 1.0 mg/dL mg/dL (0.6-1.0) Estimated GFR 53 Glucose 164 mg/dL H mg/dL (70-100) Calcium 11.0 mg/dL H mg/dL (8.5-10.4) Phosphorus 3.2 mg/dL mg/dL (2.5-4.5) Medications Given: Discontinued Medications Sodium Chloride (Ns) 1,000 mls @ 0 mls/hr IV ONCE ONE; Wide Open PRN Reason: Protocol Stop: 09/29/17 21:18 Last Admin: 09/29/17 21:21 Dose: 1,000 mls Sodium Chloride (Ns) 1,000 mls @ 0 mls/hr IV EDNOW ONE; Wide Open PRN Reason: Protocol Stop: 09/29/17 22:01 Last Admin: 09/29/17 22:17 Dose: 1,000 mls Ketorolac Tromethamine (Toradol) 30 mg IVP EDNOW ONE Stop: 09/29/17 22:48 Last Admin: 09/29/17 22:50 Dose: 30 mg Lorazepam (Ativan Injection) 1 mg IVP EDNOW ONE Stop: 09/29/17 21:43 Last Admin: 09/29/17 21:43 Dose: 1 mg Morphine Sulfate (Morphine) 4 mg IVP EDNOW ONE Stop: 09/29/17 22:23 Last Admin: 09/29/17 22:23 Dose: 4 mg Ondansetron HCl (Zofran) 4 mg IVP EDNOW ONE Stop: 09/29/17 21:17 Last Admin: 09/29/17 21:21 Dose: 4 mg Ondansetron HCl (Zofran) 4 mg IVP EDNOW ONE Stop: 09/29/17 22:23 Last Admin: 09/29/17 22:23 Dose: 4 mg Departure - Departure Disposition: Home, Routine, Self-Care Clinical Impression: Headache Qualifiers: Headache type: tension-type Headache chronicity pattern: acute headache Intractability: not intractable Qualified Code(s): G44.209 - Tension-type headache, unspecified, not intractable Condition: Good Instructions: Tension Headache (ED) Additional Instructions: 1. Please schedule a follow-up appointment with a neurologist you have been referred to for further evaluation of her headaches. 2. Please return to the ED for markedly worsening symptoms or other concerns. 3. Take Ibuprofen or Motrin 600 mg by mouth three times a day. Referrals: Nicole Mora MD [Primary Care Provider] - As per Instructions Jose A Mason DO [Medical Doctor] - As per Instructions
[2017-09-29] MEDS ORDERED: ONDANSETRON 4 MG/2 ML VIAL ONE (21:14)
[2017-09-29] MEDS ORDERED: ONDANSETRON 4 MG/2 ML VIAL IVP ONE ×2 (21:16→22:22)
[2017-09-29] MEDS ORDERED: NS 1,000 ML IV ONE ×2 (21:17→22:00)
[2017-09-29 21:26] LABS: PLATELET COUNT 304 10^3/uL (150-400)
[2017-09-29] MEDS ORDERED: LORazepam 2 MG/ML INJ ONE (21:40)
[2017-09-29] MEDS ORDERED: LORazepam 2 MG/ML INJ IVP ONE (21:42)
[2017-09-29] MEDS ORDERED: IOPAMIDOL (ISOVUE 370) 100 ML BTL IV ONE (21:52)
[2017-09-29 22:18] VITALS: RESP 20
[2017-09-29] MEDS ORDERED: KETOROLAC 30 MG/1 ML SDV IVP ONE (22:47)
[2017-09-29 23:59] VITALS: BP 153/81; PULSE 83; TEMP 97.7; O2SAT 95
== END 2017-09-29 23:59 | disposition home or self-care (01) ==
DX: G44.209 Tension-type headache, unspecified, not intractable (principal); I10 Essential (primary) hypertension; E86.9 Volume depletion, unspecified; Z95.0 Presence of cardiac pacemaker; Z87.891 Personal history of nicotine dependence
CPT/HCPCS: 70450; 70496; 70498; J1885; J2060; J2270; J2405; Q9967; 96374

== ENCOUNTER 2017-10-19 11:19 | Emergency (ER) | payer OTHER ==
[2017-10-19] MEDS ORDERED: LET GEL TOPICAL 1 EA SYR TP ONE (12:04)
--- NOTE | 2017-10-19 12:29 | EDPHY ---
H & P Time Seen by Provider: 10/19/17 11:49 HPI/ROS: This patient sustained a left lateral leg wound from the trunk of a small tree that had been cut that she fell on in their yd yesterday. She feels there are nonviable skin flap that she be debrided. She seeks wound care and dressing. She reports mild pain from the injury. She reports there was initially mild bleeding that slowed with direct pressure. She cleaned the wound at home yesterday with warm soapy water. She is accompanied by her who drove her here by private vehicle for evaluation of the wound. ROS: Neuro: No numbness or tingling the affected extremity. No head injury from the fall. Musculoskeletal: No bony pain in the affected leg. She has no difficulty walking since the injury. No other injuries from her fall. Pulmonary: No chest wound or shortness of breath from fall Cardiovascular: No pallor or change in the appearance of the affected lower extremity other than the wound. 5 point ROS is otherwise negative. Past Medical/Surgical History: Otherwise healthy Smoking Status: Former smoker Physical Exam: Physical Exam Vital signs are normal. General: Pleasant 81-year-old female appears younger than her stated age. No acute distress HEENT: Atraumatic. Eyes: Pupils equal and react to light. Extraocular motions are intact. Lungs: No respiratory distress. Cardiac: Brisk capillary refill is intact throughout. Pulses are 2+ and symmetric in the affected extremity. Skin: Patient has a 2 x 3 cm left lateral leg wound with subcutaneous tissue exposed, no active bleeding, no foreign bodies direct examination, to nonviable skin flaps there are retracted at the wound site superiorly and inferiorly. No bone exposure or deeper wound is present. Leg exam: No lateral leg tenderness or significant tibial tenderness. She can bear weight without difficulty. Neuro: Alert with no sensorimotor deficits in the affected extremity. Constitutional: Initial Vital Signs Temperature (C) 36.8 C 10/19/17 11:37 Heart Rate 75 10/19/17 11:37 Respiratory Rate 16 10/19/17 11:37 Blood Pressure 135/105 H 10/19/17 11:37 O2 Sat (%) 95 10/19/17 11:37 O2 Delivery Mode Room Air Allergies/Adverse Reactions: cefazolin [Cefazolin] Allergy (Severe, Verified 10/19/17 11:39) GLOSSAL EDEMA Penicillins Allergy (Severe, Verified 10/19/17 11:39) Other-Enter Comments Sulfa (Sulfonamide Antibiotics) Allergy (Verified 10/19/17 11:39) Home Medications: Medication Instructions Recorded Atorvastatin Calcium 10/19/17 Diltiazem 10/19/17 Gabapentin 10/19/17 Lisinopril 10/19/17 MDM/Departure - MDM Medications Given: Discontinued Medications Tetracaine/Epinephrine/Lidocaine (Let Gel Topical) 1 ea TP EDNOW ONE Stop: 10/19/17 12:05 Last Admin: 10/19/17 12:11 Dose: 1 ea ED Course/Re-evaluation: Let solution is applied to the wound. Our tech clean the wound and debrided the nonviable tissue then applied a breathe able dressing. We counseled patient regarding wound care. She declined analgesics while here. Patient will follow up with primary care physician or the wound Care Clinic if she is uncomfortable with dressing changes at home. She understands need to return emergency department should she develop redness, discharge or other concerns for infection. - Depart Disposition: Home, Routine, Self-Care Clinical Impression: Leg wound, left Qualifiers: Encounter type: initial encounter Qualified Code(s): S81.802A - Unspecified open wound, left lower leg, initial encounter Condition: Good Instructions: Acute Wounds (ED) Additional Instructions: Diagnosis: Leg wound Plan: Keep the current dressing in place for the next few days. Then remove, gently clean wound and reapply similar dressing. If you're uncomfortable with this then you can Follow up with other your primary care physician if it is a family practitioner or the wound Care Clinic Return if he develops redness, discharge or other concerns for infection Tylenol for pain if needed Referrals: Nicole Mora MD [Primary Care Provider] - As per Instructions
[2017-10-19 13:44] VITALS: BP 130/98
== END 2017-10-19 13:35 | disposition home or self-care (01) ==
LOC: CED 11:19
DX: S81.802A Unspecified open wound, left lower leg, initial encounter (principal); Z87.891 Personal history of nicotine dependence; W18.00XA Striking against unspecified object with subsequent fall, initial encounter; Y92.017 Garden or yard in single-family (private) house as the place of occurrence of the external cause

== ENCOUNTER → 2018-01-13 | Outpatient (CLI) | payer OTHER | LOC: CIMAGING 13:33 | PROVIDERS: ATTEND Family Medicine | DX: R07.89 Other chest pain (principal) | CPT/HCPCS: 36415-PO; 71100-PO ==

== ENCOUNTER → 2018-02-02 | Outpatient (CLI) | payer OTHER ==
[~2018-02-02] MED LIST changes: +IOPAMIDOL (ISOVUE-300) 100 ML BTL ONE; -IOPAMIDOL (ISOVUE-M 200) 20 ML VIAL ONE; -LIDOCAINE 1% 300 MG/30 ML SDV ONE
== END ==
LOC: CIMAGING 10:23
PROVIDERS: ATTEND Family Medicine
DX: K83.8 Other specified diseases of biliary tract (principal); N28.1 Cyst of kidney, acquired; K44.9 Diaphragmatic hernia without obstruction or gangrene; M51.34 Other intervertebral disc degeneration, thoracic region
CPT/HCPCS: 74177; Q9967

== ENCOUNTER → 2018-02-18 | Outpatient (CLI) | payer OTHER | LOC: FIMAGING 08:52 | PROVIDERS: ATTEND Family Medicine | DX: Z12.31 Encounter for screening mammogram for malignant neoplasm of breast (principal); N64.4 Mastodynia; N28.1 Cyst of kidney, acquired ==

== ENCOUNTER 2018-05-16 11:46 | Inpatient (IN) | payer OTHER ==
[2018-05-16] MEDS ORDERED: ASPIRIN 81 MG CHEWABLE TAB PO ONE (11:58)
[2018-05-16 12:11] LABS: PLATELET COUNT 277 10^3/uL (150-400)
[2018-05-16 12:19] LABS: INR 0.97 (0.83-1.16); PROTIME(PATIENT) 13.1 SEC (12.0-15.0)
--- NOTE | 2018-05-16 12:33 | EDPHY ---
H & P Time Seen by Provider: 05/16/18 12:00 HPI/ROS: HPI Chest pain. 82-year-old female from the office of her dye expert Dr. Eliseo Jasmine. This patient presents to the emergency department with complaint of progressively worsening chest pain with exertion since last week. She goes on a bike ride with her 3 days a week. She reports that last week during these by cried she had progressively worsening chest pain which she describes as a squeezing pressure-like sensation. She denies any chest pain at this time. She was seen in the office of Dr. Eliseo Jasmine. She explained this history. He called me and had her sent down to the emergency department immediately for evaluation and workup. She has multiple risk factors including a family history of heart disease, her age, hyperlipidemia and hypertension. She also reports having associated shortness of breath. She has a prior history of a PE after shoulder surgery. She currently is not on anticoagulants or antiplatelet medications. She is a former smoker but has not smoked in 50 years. ROS: Constitutional: No fever, no chills. No weakness. Eyes: No discharge. No changes in vision. ENT: No sore throat. No nasal congestion or rhinorrhea. Respiratory: No cough. As above. Cardiac: As above, no palpitations. Gastrointestinal: No abdominal pain, no vomiting, no diarrhea. Genitourinary: No hematuria. No dysuria or increased frequency with urination. Musculoskeletal: No back pain. No neck pain. No myalgias or arthralgias. Skin: No rashes. Neurological: No headache. No focal weakness or altered sensation. Past medical history: Restless leg syndrome, hypertension, sleep apnea, pacemaker. As above. Social history: As above. She is here with her . Social alcohol. Physical Exam: General Appearance: Alert, no distress. This patient is responding to questions appropriately and in full sentences. This patient appears well- hydrated and well-nourished. Eyes: Pupils equal and round no pallor or injection. No lid edema, erythema or injection. Respiratory: There are no retractions, lungs are clear to auscultation with good air movement bilaterally. Cardiovascular: Regular rate and rhythm. No murmur. Gastrointestinal: Abdomen is soft and nontender, no masses, bowel sounds normal. No focal tenderness at McBurney's point. No Valadez sign. Neurological: Motor sensory function is grossly intact. Cranial nerves are normal. Gait is normal. Skin: Warm and dry, no rashes. Musculoskeletal: Neck is supple and nontender. Extremities are symmetrical. All joints range without pain or impingement. Psychiatric: No agitation. No depression. Database: EKG: EKG time is 11:56 a.m.; EKG shows a narrow complex normal sinus rhythm with a ventricular rate of 68. Paced ventricular complexes noted. QS waves in V1 and V2. The MN, QRS, QT intervals are within normal limits. There are no ST-T wave changes indicative of ischemic or injury pattern. No evidence of right heart strain. Interpreted by me. Imaging: Chest x-ray AP portable; the cardiac mediastinal silhouette is unremarkable. No evidence of infiltrate or pneumothorax. No acute cardiopulmonary disease process noted. Interpreted by me. Procedures: Emergency department course: Triage vital signs reviewed. She is moderately hypertensive. Vital signs otherwise normal. IV was placed. She was placed on a monitor. She was given 324 mg of chewed aspirin. EKG obtained and reviewed by myself. 1:00 p.m., the patient was re-evaluated. Resting comfortably at this time. No chest pain currently. Results of her diagnostic workup discussed thoroughly with her and her . Need for admission discussed. They endorse. All of their questions were answered. Hospitalist paged. 1:10 p.m., spoke with hospitalist. Case discussed in detail. Patient accepted for admission to Dr. Kandice Dominguez. Patient will be admitted to telemetry observation. Discussed elevated D-dimer at 0.68 but with age-related factor a question the significance of this. Hospitalist agrees. They will evaluate the patient and determine whether CT angiogram to be obtained. Also the patient's creatinine is slightly elevated at 1.1. The patient's remaining emergency department course under my care has been uneventful. The patient was admitted to telemetry observation in stable condition. Differential Diagnosis: The differential diagnosis on this patient includes but is not limited to acute coronary syndrome. Myocardial infarction, pulmonary embolism, myocarditis, pericarditis, pneumothorax, pneumonia, aortic dissection unlikely. This represents a partial list of diagnoses considered. These considerations are based on history, physical exam, past history, reassessment and diagnostic testing. Smoking Status: Former smoker Constitutional: Initial Vital Signs Temperature (C) 36.9 C 05/16/18 11:56 Heart Rate 70 10/22/18 11:56 Respiratory Rate 18 05/16/18 11:56 Blood Pressure 178/79 H 05/16/18 11:56 O2 Sat (%) 97 05/16/18 11:56 O2 Delivery Mode Room Air Allergies/Adverse Reactions: cefazolin [Cefazolin] Allergy (Severe, Verified 05/16/18 11:48) GLOSSAL EDEMA Penicillins Allergy (Severe, Verified 05/16/18 11:48) Other-Enter Comments Sulfa (Sulfonamide Antibiotics) Allergy (Verified 05/16/18 11:48) Home Medications: Medication Instructions Recorded Atorvastatin Calcium 10/19/17 Diltiazem 10/19/17 Gabapentin 10/19/17 Lisinopril 10/19/17 Medical Decision Making - Diagnostics Imaging Results: Imaging Impressions Chest X-Ray 05/16/18 11:59 Impression: 1. Clear lungs. No acute process. 2. Mild cardiomegaly unchanged. No failure. - Data Points Laboratory Results: Laboratory Results 05/16/18 12:03 05/16/18 12:03 05/16/18 05/16/18 05/16/18 12:07 12:03 12:03 WBC RBC Hgb Hct MCV MCH MCHC RDW Plt Count MPV Neut % (Auto) Lymph % (Auto) Carlton % (Auto) Eos % (Auto) Baso % (Auto) Nucleat RBC Rel Count Absolute Neuts (auto) Absolute Lymphs (auto) Absolute Monos (auto) Absolute Eos (auto) Absolute Basos (auto) Absolute Nucleated RBC Immature Gran % Immature Gran # PT 13.1 SEC SEC (12.0-15.0) INR 0.97 (0.83-1.16) APTT 28.9 SEC SEC (23.0-38.0) D-Dimer 0.68 ug/mLFEU H ug/mLFEU (0.00-0.50) Sodium 140 mEq/L mEq/L (135-145) Potassium 4.4 mEq/L mEq/L (3.3-5.0) Chloride 103 mEq/L mEq/L (97-110) Carbon Dioxide 27 mEq/l mEq/l (22-31) Anion Gap 10 mEq/L mEq/L (6-14) BUN 30 mg/dL H mg/dL (7-23) Creatinine 1.1 mg/dL H mg/dL (0.6-1.0) Estimated GFR 48 Glucose 96 mg/dL mg/dL (70-100) Calcium 9.7 mg/dL mg/dL (8.5-10.4) POC Troponin I 0.01 ng/mL ng/mL (0.00-0.08) NT-Pro-B Natriuret Pep 457 pg/mL H pg/mL (0-450) 05/16/18 12:03 WBC 7.70 10^3/uL 10^3/uL (3.80-9.50) RBC 4.43 10^6/uL 10^6/uL (4.18-5.33) Hgb 14.0 g/dL g/dL (12.6-16.3) Hct 42.3 % % (38.0-47.0) MCV 95.5 fL fL (81.5-99.8) MCH 31.6 pg pg (27.9-34.1) MCHC 33.1 g/dL g/dL (32.4-36.7) RDW 13.0 % % (11.5-15.2) Plt Count 277 10^3/uL 10^3/uL (150-400) MPV 9.8 fL fL (8.7-11.7) Neut % (Auto) 54.5 % % (39.3-74.2) Lymph % (Auto) 27.3 % % (15.0-45.0) Carlton % (Auto) 11.7 % % (4.5-13.0) Eos % (Auto) 5.3 % % (0.6-7.6) Baso % (Auto) 0.9 % % (0.3-1.7) Nucleat RBC Rel Count 0.0 % % (0.0-0.2) Absolute Neuts (auto) 4.20 10^3/uL 10^3/uL (1.70-6.50) Absolute Lymphs (auto) 2.10 10^3/uL 10^3/uL (1.00-3.00) Absolute Monos (auto) 0.90 10^3/uL H 10^3/uL (0.30-0.80) Absolute Eos (auto) 0.41 10^3/uL H 10^3/uL (0.03-0.40) Absolute Basos (auto) 0.07 10^3/uL 10^3/uL (0.02-0.10) Absolute Nucleated RBC 0.00 10^3/uL 10^3/uL (0-0.01) Immature Gran % 0.3 % % (0.0-1.1) Immature Gran # 0.02 10^3/uL 10^3/uL (0.00-0.10) PT INR APTT D-Dimer Sodium Potassium Chloride Carbon Dioxide Anion Gap BUN Creatinine Estimated GFR Glucose Calcium POC Troponin I NT-Pro-B Natriuret Pep Medications Given: Discontinued Medications Aspirin (Aspirin) 324 mg PO EDNOW ONE Stop: 05/16/18 11:59 Last Admin: 05/16/18 12:23 Dose: 324 mg Point of Care Test Results: Chemistry 05/16/18 12:07 POC Troponin I 0.01 ng/mL ng/mL (0.00-0.08) Departure - Departure Disposition: [facility] Inpatient Acute Clinical Impression: Chest pain Condition: Fair Referrals: Eliseo Jasmine MD [Primary Care Provider] - As per Instructions
--- NOTE | 2018-05-16 14:18 | CPEKG ---
Test Reason : OPEN Blood Pressure : / mmHG Vent. Rate : 068 BPM Atrial Rate : 071 BPM P-R Int : 185 ms QRS Dur : 093 ms QT Int : 413 ms P-R-T Axes : 079 048 057 degrees QTc Int : 440 ms Sinus rhythm Multiple ventricular premature complexes Probable anteroseptal infarct, old Confirmed by Jos Downing ([id number]) on 05/16/2018 2:18:15 PM Referred By: Confirmed By:Jos Downing
[2018-05-16] MEDS ORDERED: ONDANSETRON DISINTEGRATING 4 MG TAB PO PRN (14:58)
[2018-05-16] MEDS ORDERED: ONDANSETRON 4 MG/2 ML VIAL IVP PRN (14:58)
[2018-05-16] MEDS ORDERED: LORazepam 1 MG TAB PO PRN (15:01)
--- NOTE | 2018-05-16 15:13 | PDCPHP ---
History and Physical Chief Complaint: chest pain - History of Present Illness This is a 82 yo,White,F with h/o htn, hld presents to ED with report of dyspnea with exertion. She reports that while riding her bike this week, she felt very short of breath and developed heaviness in her chest. The pain resolved with rest. Denies radiation of the pain. No associated diaphoresis or nausea. 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 She is chest pain free today and has had no recurrence of the pain. History Information - Allergies/Home Medication List Allergies/Adverse Reactions: cefazolin [Cefazolin] Allergy (Severe, Verified 05/16/18 11:48) GLOSSAL EDEMA Penicillins Allergy (Severe, Verified 05/16/18 11:48) Other-Enter Comments Sulfa (Sulfonamide Antibiotics) Allergy (Verified 05/16/18 11:48) Home Medications: Atorvastatin Calcium [Lipitor 40 mg (*)] 40 mg PO HS 10/19/17 [Last Taken ] Diltiazem HCl [Cartia Xt] 120 mg PO DAILY 10/19/17 [Last Taken 05/16/18] Gabapentin [Neurontin 300 MG (*)] 600 mg PO HS 10/19/17 [Last Taken 05/15/18] Lisinopril [Zestril 10 mg (*)] 10 mg PO HS 10/19/17 [Last Taken 05/15/18] Fluticasone Nasal [Flonase Nasal [place] (RX)] 2 sprays NASAL DAILY 05/16/18 [ Last Taken Unknown] LORazepam [Ativan 2 mg tab] 1 - 2 mg PO HS PRN 05/16/18 [Last Taken Unknown] I have personally reviewed and updated: family history, medical history, social history, surgical history - Past Medical History hypertension, hyperlipidemia - Surgical History Reports: no pertinent surgical hx - Family History Positive for: CAD - Social History Smoking Status: Former smoker Alcohol Use: None Drug Use: None Additional social history: , lives independently Review of Systems Review of Systems: ROS: 10pt was reviewed & negative except for what was stated in HPI & below Physical Exam Physical Exam: Temp Pulse Resp BP Pulse Ox 36.5 C 69 18 158/80 H 96 05/16/18 13:46 05/16/18 13:46 05/16/18 13:46 05/16/18 13:46 05/16/18 13:46 Constitutional: no apparent distress Eyes: PERRL Ears, Nose, Mouth, Throat: moist mucous membranes Cardiovascular: regular rate and rhythym, no murmur, rub, or gallop Respiratory: no respiratory distress, clear to auscultation Gastrointestinal: normoactive bowel sounds, soft, non-tender abdomen Skin: warm Musculoskeletal: full muscle strength Neurologic: AAOx3 Psychiatric: interacting appropriately Lab Data & Imaging Review 05/16/18 12:03 05/16/18 12:03 WBC 7.70 10^3/uL (3.80-9.50) 05/16/18 12:03 RBC 4.43 10^6/uL (4.18-5.33) 05/16/18 12:03 Hgb 14.0 g/dL (12.6-16.3) 05/16/18 12:03 Hct 42.3 % (38.0-47.0) 05/16/18 12:03 MCV 95.5 fL (81.5-99.8) 05/16/18 12:03 MCH 31.6 pg (27.9-34.1) 05/16/18 12:03 MCHC 33.1 g/dL (32.4-36.7) 05/16/18 12:03 RDW 13.0 % (11.5-15.2) 05/16/18 12:03 Plt Count 277 10^3/uL (150-400) 05/16/18 12:03 MPV 9.8 fL (8.7-11.7) 05/16/18 12:03 Neut % (Auto) 54.5 % (39.3-74.2) 05/16/18 12:03 Lymph % (Auto) 27.3 % (15.0-45.0) 05/16/18 12:03 [place] % (Auto) 11.7 % (4.5-13.0) 05/16/18 12:03 Eos % (Auto) 5.3 % (0.6-7.6) 05/16/18 12:03 Baso % (Auto) 0.9 % (0.3-1.7) 05/16/18 12:03 Nucleat RBC Rel Count 0.0 % (0.0-0.2) 05/16/18 12:03 Absolute Neuts (auto) 4.20 10^3/uL (1.70-6.50) 05/16/18 12:03 Absolute Lymphs (auto) 2.10 10^3/uL (1.00-3.00) 05/16/18 12:03 Absolute Monos (auto) 0.90 10^3/uL (0.30-0.80) H 05/16/18 12:03 Absolute Eos (auto) 0.41 10^3/uL (0.03-0.40) H 05/16/18 12:03 Absolute Basos (auto) 0.07 10^3/uL (0.02-0.10) 05/16/18 12:03 Absolute Nucleated RBC 0.00 10^3/uL (0-0.01) 05/16/18 12:03 Immature Gran % 0.3 % (0.0-1.1) 05/16/18 12:03 Immature Gran # 0.02 10^3/uL (0.00-0.10) 05/16/18 12:03 PT 13.1 SEC (12.0-15.0) 05/16/18 12:03 INR 0.97 (0.83-1.16) 05/16/18 12:03 APTT 28.9 SEC (23.0-38.0) 05/16/18 12:03 D-Dimer 0.68 ug/mLFEU (0.00-0.50) H 05/16/18 12:03 Sodium 140 mEq/L (135-145) 05/16/18 12:03 Potassium 4.4 mEq/L (3.3-5.0) 05/16/18 12:03 Chloride 103 mEq/L (97-110) 05/16/18 12:03 Carbon Dioxide 27 mEq/l (22-31) 05/16/18 12:03 Anion Gap 10 mEq/L (6-14) 05/16/18 12:03 BUN 30 mg/dL (7-23) H 05/16/18 12:03 Creatinine 1.1 mg/dL (0.6-1.0) H 05/16/18 12:03 Estimated GFR 48 05/16/18 12:03 Glucose 96 mg/dL (70-100) 05/16/18 12:03 Calcium 9.7 mg/dL (8.5-10.4) 05/16/18 12:03 POC Troponin I 0.01 ng/mL (0.00-0.08) 05/16/18 12:07 NT-Pro-B Natriuret Pep 457 pg/mL (0-450) H 05/16/18 12:03 Visualized and Interpreted Chest x-ray results: Yes Chest X-Ray results: no infiltrate Visualized and Interpreted EKG results: Yes EKG Interpretation: Positive for: normal sinsus rhythm EKG additional interpertation: no e/o acute ischemia Assessment and Plan Assessment: CP and THOMASON - Heart score 6 for concerning story, age, htn, hld, family hx of CAD. CP free today, had several episodes while bike riding last week. Note h/ o PE in 04/2016, off anticoagulation now. EKG non-ischemic. Initial trop neg. D dimer slightly elevated, age adjusted d dimer normal, but with h/o PE, increased suspicion. -CTA to r/o PE -trend trop -check echo to eval for wma -stress test in am if above w/u unrevealing Hypertension - poor control, current SBP 180, query if she is having a hypertensive response to exercise contributing to symptoms with exertion -increase lisinopril to 20 mg daily (was on the this dose previously, but was cut back by PCP) -cont dilt Hyperlipidemia - cont statin Full code Dispo - obs Plan: The patient will be placed in observation due to concerns for Acute Coronary Syndrome. * continuous telemetry to monitor for ST segment changes * monitor vital signs every 4 hours * morphine sulfate IV and nitroglycerin sublingual as needed for chest pain * repeat EKG in 6 hours to monitor for changes that would suggest ischemia or infarction * repeat EKG as needed for recurrent chest pain * repeat troponin in 4-6 hours after onset of chest pain * Arrange for [inpatient][outpatient]stress test once chest pain is resolved, repeat troponin and EKG are negative, and the patient is symptom free for greater than 6 hours from the onset of pain * If the patient develops dynamic EKG changes consistent with ischemia/ infarction, troponin elevation, or has an abnormal stress test the patient will be treated for acute coronary syndrome as clinically indicated. * []
[2018-05-16] MEDS: LISINOPRIL 20 MG TAB PO SCH (15:39)
[2018-05-16] MEDS ORDERED: IOPAMIDOL (ISOVUE 370) 100 ML BTL IV ONE (16:07)
[2018-05-16] MEDS: ATORVASTATIN CALCIUM 40 MG TAB PO SCH (20:16)
[2018-05-16] MEDS: GABAPENTIN 300 MG CAP PO SCH (20:16)
[2018-05-16] MEDS ORDERED: LISINOPRIL 10 MG TAB PO SCH (21:00)
[2018-05-17] MEDS ORDERED: REGADENOSON 0.4 MG/5 ML SYR IVP ONE (08:56)
[2018-05-17] MEDS ORDERED: DILTIAZEM CD 120 MG CAP PO SCH (09:00)
[2018-05-17] MEDS: ACETAMINOPHEN 325 MG TAB PO PRN (10:30)
[2018-05-17] MEDS: FLUTICASONE NASAL 120 SPRAYS/16 GM MDI EACHNARE SCH (10:49)
--- NOTE | 2018-05-17 10:55 | CPR ---
PROCEDURE: Lexiscan injection of Lexiscan MPI study SUPERVISING REFRIGERATOR ASSEMBLER: Dr. Carmella Cedillo INDICATION FOR PROCEDURE: Chest pressure, paced rhythm. PRE: After obtaining informed consent and ensuring patient's n.p.o. status for caffeine for greater than 12 hours, the patient was placed onto electrocardiogram. Initial EKG shows sinus rhythm, normal axis, with no significant ST or T-wave abnormalities. Patient denies any chest pain, pressure, or s ymptoms suggesting of ischemia. Initial blood pressure 130/60, saturating 92% on room air. INJECTION: Patient was given injection of Lexiscan, followed by nuclear isotope, within 1 minute of injection, patient reported increased shortness of breath, mild chest tightness, with noted elevated heart rate up to 99 beats per minute, no significant EKG changes. Blood pressure did elevate to 142/ 60, within 2 minutes, patient was given caffeinated beverage, and by 3 minutes post injection, sympto ms have mostly resolved, 5 minutes post injection, again no significant EKG changes, heart rate is 93 , blood pressure of 138/62, saturation 98%. The patient was asymptomatic at this time. IMPRESSION: 82-year-old female with episodes of chest pressure with known history of pacemaker, bein g evaluated for cardiac ischemia. Did report some mild shortness of breath and chest tightness with initial injection of Lexiscan, did resolve with caffeinated beverage, no significant EKG changes. Vi karen signs are stable. Currently, she is asymptomatic. She will finish poststress imaging in nuclear medicine. /[id number]/MODL
--- NOTE | 2018-05-17 15:39 | ASMTCMCOM ---
CM Note CM Note Notes: Pt is a 82 y/o female who experienced dyspnea on exertion. Pt has the understanding that one of her pacemasker's wires may be loose and is contributing to her symptoms. She has not seen the physician yet to confirm this. Pt lives independently with her . She is physically active. She is leaving town for 3 weeks beginning next Wednesday. No CM needs are anticipated. CM will follow for changes. D/C Plan: Independent. Date Signed: 05/17/2018 03:39 PM Electronically Signed By:Ambreen Cyr
--- NOTE | 2018-05-17 15:58 | HOSPPROG ---
Hospitalist Progress Note Assessment/Plan: CP and THOMASON - Trops neg, EKG non-ischemic, Veronica stress neg. Echo discussed with cards and pericardial effusion is noted with possible perforation of pacer lead. Pericardial effusion - discussed with cards, no e/o tamponade -cardiology to consult -pacer interrogation in am -need to determine if pacer lead needs to be replaced Hypertension - improved control with increased lisinopril dose Hyperlipidemia - cont statin Full code Dispo - change to inpt for ongoing evaluation of pericardial effusion and dyspnea Subjective: Pt feels well. She did endorse SOB and "nasal flaring" with ambulation today. No more CP. NO fevers or chills. Objective: Vital Signs Temp Pulse Resp BP Pulse Ox 36.8 C 82 20 116/91 H 95 05/17/18 15:29 05/17/18 15:29 05/17/18 15:29 05/17/18 15:29 05/17/18 15:29 Microbiology 05/16/18 15:35 Respiratory Panel (PCR) - Final Nasal, Sinus - Swab No Organism Detected Laboratory Results 05/17/18 03:54 05/16/18 05/17/18 05/18/18 05:59 05:59 05:59 Intake Total 500 Output Total 1100 Balance -600 PT 13.1 SEC (12.0-15.0) 05/16/18 12:03 INR 0.97 (0.83-1.16) 05/16/18 12:03 - Physical Exam Constitutional: no apparent distress Eyes: PERRL Ears, Nose, Mouth, Throat: moist mucous membranes Cardiovascular: regular rate and rhythym Respiratory: no respiratory distress, clear to auscultation Gastrointestinal: normoactive bowel sounds, soft, non-tender abdomen Skin: warm Musculoskeletal: full muscle strength Neurologic: AAOx3 Psychiatric: interacting appropriately ICD10 Worksheet Patient Problems: Problems Problem Status Onset Chest pain Acute Chest pain Acute Dizziness Acute Dyspnea Acute Hypertensive urgency Acute Leg wound, left Acute Pulmonary emboli Acute
--- NOTE | 2018-05-17 15:58 | ECHO ---
[email or web address] [address] [address] Main: [phone] Fax: Transthoracic Echocardiogram Name: SARA CIFUENTES MR#: [id number] Study Date: 05/17/2018 Study Time: 12:00 PM Date of : 1935 Age: 82 year(s) Height: 162.6 cm (64 in.) Weight: 64.41 kg (142 lb.) BSA: 1.69 m2 Gender: Female Examination: Echo Indication: Dyspnea on exertion, chest pain while bike riding Image Quality: Adequate Contrast: Requested by: Kandice Dominguez BP: 140 mmHg/85 mmHg Heart Rate: Rhythm: Indication: Dyspnea on exertion, chest pain while bike riding Procedure Staff Filler Shredder Machine: Sammie Drake [facility] Reading Physician: Carmella Cedillo MD Requesting Provider: Kandice Dominguez Conclusions: Normal size left ventricle. No LV hypertrophy. Normal global systolic LV function. EF is 60 %. No regional wall motion abnormality. Normal size right ventricle. Normal RV function. There is a pacemaker lead noted in the right ventricle. The RV pacer lead is apically placed. Some views it appears that it is through the pericardium, but this cannot be seen in all views. . Trivial to mild mitral regurgitation. Mild tricuspid regurgitation is present. Right ventricular systolic pressure measures 28mmHg. The pulmonary artery pressure is normal. Small to moderate size pericardial effusion most prominent around the RV apex. No evidence of tamponade. Fibrinous material noted in the effusion . Compared directly to 11/25/2016 overall similar findings including the appearance of the RV pacemaker lead and the small to moderate pericardial effusion containing fibrinous debris. Measurements: Chambers Valvular Assessment AV/MV Valvular Assessment TV/PV Normal Normal Normal Name Value Range Name Value Range Name Value Range Ao Nicki (MM): 2.9 cm (2.2 cm-3.7 AV Vmax: 1.15 m/s (1 m/s-1.7 TR Vmax: 2.40 mm/s ( - ) cm) m/s) TR PGmax: 23 mmHg ( - ) IVSd (2D): 1.0 cm (0.6 cm-1.1 AV maxP mmHg ( - ) syst. PAP: 28 mmHg ( - ) cm) LVOT Vmax: 1.03 m/s (0.7 m/s-1.1 PV Vmax: 0.76 m/s (0.6 m/s-0.9 LVDd (2D): 3.8 cm (3.9 cm-5.3 m/s) m/s) cm) SAM (Vmax): 2.5 cm2 ( - ) PV PGmax: 2 mmHg ( - ) Patient: SARA CIFUENTES Study Date: 05/17/2018 Page 1 of 2 12:00 PM LVDs (2D): 2.8 cm (2.1 cm-4 MV E Vmax: 0.78 m/s ( - ) cm) MV A Vmax: 1.08 m/s ( - ) LVPWd (2D): 0.9 cm ( - ) MV E/A: 0.72 ( - ) LVOTd 1.9 cm 1.9 cm mm LVEF (BP): 60 % (>=55 %) RVDd(2D): 2.5 cm (1.9 cm-3.8 cmmm) Continued Measurements: Chambers Valvular Assessment AV/MV Valvular Assessment TV/PV Name Value Name Value Name Value LADs Lon.6 cm MV DecTime: 169 m/s CVP (est.): 5 mmHg LA Area: 14.5 cm2 MV E' Septal: 0.04 m/s LA Volume: 30 ml MV E/E' Septal: 20.10 LA Volume Index: 17.8 ml/m2 MV E/E' Lateral: 13.00 TAPSE: 1.8 cm RA Area: 12.9 cm2 Findings: Left Ventricle: Normal size left ventricle. No LV hypertrophy. Normal global systolic LV function. EF is 60 %. No regional wall motion abnormality. Right Ventricle: Normal size right ventricle. Normal RV function. There is a pacemaker lead noted in the right ventricle. The RV pacer lead is apically placed. Some views it appears that it is through the pericardium, but this cannot be seen in all views. . Left Atrium: The left atrium is normal in size. Right Atrium: The right atrium is normal in size. There is a pacemaker lead noted in the right atrium. Mitral Valve: The mitral valve is normal in appearance and function. Trivial to mild mitral regurgitation. No mitral stenosis is present. Aortic Valve: The aortic valve is tri-leaflet and functions normally. There is no aortic valve regurgitation. No aortic valve stenosis is present. Tricuspid Valve: The tricuspid valve is normal in appearance and function. Mild tricuspid regurgitation is present. Right ventricular systolic pressure measures 28mmHg. The pulmonary artery pressure is normal. Pulmonic Valve: Pulmonary valve not well visualized. Trivial pulmonic valve regurgitation. Aorta: Normal size aortic root measuring 2.9 cm. IVC: Normal size and course of the IVC. Pericardium: Small to moderate size pericardial effusion most prominent around the RV apex. No evidence of tamponade. Fibrinous material noted in the effusion . (No Signature Object) Patient: SARA CIFUENTES Study Date: 05/17/2018 Page 2 of 2 12:00 PM [id number]
[2018-05-17] MEDS ORDERED: TEMAZEPAM 15 MG CAP PO PRN (17:14)
[2018-05-17] MEDS ORDERED: NITROGLYCERIN 0.4 MG BTL SL PRN (17:14)
[2018-05-17] MEDS ORDERED: METOPROLOL SUCCINATE XR 50 MG TAB PO SCH (17:30)
[2018-05-17] MEDS: ASPIRIN 325 MG TAB PO SCH (17:57)
[2018-05-17] MEDS: ATORVASTATIN CALCIUM 40 MG TAB PO SCH (21:07)
[2018-05-17] MEDS: GABAPENTIN 300 MG CAP PO SCH (21:07)
[2018-05-17] MEDS: LISINOPRIL 20 MG TAB PO SCH (21:07)
[2018-05-17] MEDS: METOPROLOL SUCCINATE XR 50 MG TAB PO SCH (21:10)
--- NOTE | 2018-05-17 21:28 | GCON ---
CARDIOLOGY CONSULT DATE OF CONSULTATION: 05/17/2018 [employer] SAL[employer] ASSOCIATE: Dr. Esteban Jasmine CHIEF COMPLAINT: Chest pain and shortness of breath. HISTORY OF PRESENT ILLNESS: We were asked by Dr. Dominguez to visit with the patient. The patient is a very pleasant 82-year-old female. She is a retired nurse. She has a history of hypertension, dysl ipidemia, coronary artery calcification seen on chest CT, paroxysmal atrial tachycardia, and [place] pacemaker. Her 1st device was placed about 25 years ago, and she has had 2 generator changes sinc e that time. Her last pacemaker check in our office was March 2017. She was in her usual state of good health until about a week ago. She has gone on a few bike rides i n that time period and had progressive chest heaviness and dyspnea to the point where she had to stop after about 50 meters of exercise. This is very unusual for her. Her blood pressure has also been much higher than normal. Her notes that she has been fatigued. She does have intermittent lightheadedness but has not had syncope. She has palpitations that occur about once weekly. No lower extremity edema. REVIEW OF SYSTEMS: A full 10-point review of systems performed, notable for that which is outlined a alcon. Additionally, she has had some tinnitus. Otherwise review of systems is negative. ALLERGIES: Cefazolin, penicillin, sulfa. PAST MEDICAL HISTORY: 1. Hypertension. 2. [place] dual-chamber pacemaker. Last generator change was 2009. Leads are about 25 years old . 3. Paroxysmal atrial tachycardia. 4. Dyslipidemia. 5. Coronary artery calcifications. 6. History of PE, post short shoulder surgery. 7. Sleep apnea. 8. Restless legs syndrome. OUTPATIENT MEDICATIONS: Atorvastatin 40 mg, diltiazem 120 mg, Flonase nasal spray, Neurontin, Zestri l 10 mg daily, and Ativan p.r.n. SOCIAL HISTORY: The patient is , and her is at the bedside. She is a retired nurse. She smoked tobacco in the remote past. She drinks alcohol in moderation. FAMILY HISTORY: Not applicable to the current case. PHYSICAL EXAM: VITAL SIGNS: Blood pressure is currently 116/91, but she was very hypertensive upon admission to the ER yesterday, 178/79. Heart rate 82, oxygen saturation 95% on room air. Respirator y rate is 20. She is afebrile. GENERAL: Well-appearing, older female in no acute distress. HEENT: Sclerae are clear and free of jaundice. Mucous membranes are moist. Normocephalic, atraumatic. C arotids are equal and 2+ without bruit. Regular rate and rhythm without murmur, rub, or gallop. ELZBIETA GS: Clear to auscultation bilaterally without wheezes, rhonchi, or rales. ABDOMEN: Soft, nontender , nondistended, without bruits, masses, or hepatosplenomegaly. EXTREMITIES: Warm and well perfused without cyanosis, clubbing, or edema. NEURO: Alert and oriented x3 without gross focal neurological deficits. Appropriate mood and affect. LABS: CBC is normal. INR is 0.97. D-dimer is 0.68. Basic metabolic panel is normal except for a B JEWEL BEARING TURNER of 24. Troponin negative x3. BNP 457. EKG reviewed by me: Sinus rhythm without ischemic changes. Myocardial perfusion stress test today: This is a pharmacological stress test. Normal myocardial pe rfusion. Normal ejection fraction. Echocardiogram reviewed by me and also compared to November 2016: Normal LV size and systolic function. Small to moderate pericardial effusion noted most prominently around the RV apex. In some views, the re is the appearance of RV lead perforation to the RV apex, but this is not corroborated in all views . Mild mitral regurgitation and mild tricuspid regurgitation with normal estimated pulmonary pressur e. Chest CT: No pulmonary embolism. Very small pulmonary nodules that are unlikely to be clinically si gnificant. There is a trace pericardial effusion seen on the study that was also seen on July 14 study. Coronary artery calcifications. Chest x-ray: Stable dual-chamber pacemaker. No acute cardiopulmonary process. Pacemaker check today: Increase in RA capture threshold since March 2017. RV lead impedances garcia ve been stable. The patient paces less than 1% of the time in the atrium and also in the ventricle. Brief periods of paroxysmal atrial tachycardia were seen. ASSESSMENT AND PLAN: 82-year-old female with hypertension, dyslipidemia, pacemaker, coronary artery calcifications, presents with exertional symptoms very concerning for angina. Currently chest pain f ree, but she did report diaphoresis and dyspnea when walking in the halls earlier today. 1. Exertional chest pain, dyspnea, and diaphoresis: As mentioned, concerning for coronary etiology. Despite normal troponins, nonischemic resting EKG, and normal myocardial perfusion, I am concerned that she may have obstructive coronary disease. I have recommended definitive assessment of her brian nary circulation with cardiac catheterization. Risks, benefits, and alternatives were discussed with the patient and her , and she is willing to proceed. This will be scheduled for tomorrow. O ther etiologies for her chest discomfort with exertion include marked hypertension with exercise. I will change her from diltiazem to beta betty. Start aspirin. Continue statin. 2. Hypertension: Quite hypertensive upon admission, which may be contributing to her symptom comple x. Agree with increasing lisinopril per Dr. Dominguez. I will change her from diltiazem to Toprol. 3. Permanent pacemaker: Overall normal device function, although she does have increasing capture t hresholds in her right atrium. She is paced less than 1% of the time, so I do not think this is clin ically a problem at the moment other than battery life. I would like to keep her right atrial lead o n to monitor for atrial fibrillation in the future. She does have a small to moderate pericardial ef fusion that is stable compared to a year and half ago. I do not think this represents an acute right ventricular lead perforation. She may have had a microperforation at some point. I do not think th at this is contributing to her current symptom complex. She was advised that she requires routine ch ecks in the office, every 3-6 months and not every year. 4. Dyslipidemia: Check lipids. Continue statin. 5. History of pulmonary embolism: No pulmonary embolism this admission. She will be on aspirin. Thank for us to participate in the patient's care. We will follow you. /[id number]/MODL
[2018-05-18 04:38] LABS: PLATELET COUNT 242 10^3/uL (150-400)
[2018-05-18 04:54] LABS: INR 1.03 (0.83-1.16); PROTIME(PATIENT) 13.7 SEC (12.0-15.0)
[2018-05-18] MEDS ORDERED: FAMOTIDINE 20 MG TAB PO ONE ×2 (06:00→14:45)
[2018-05-18] MEDS ORDERED: NS 1,000 ML IV ONE (06:00)
[2018-05-18] MEDS ORDERED: DIAZEPAM 5 MG TAB PO ONE ×2 (06:00→14:45)
[2018-05-18] MEDS ORDERED: ASPIRIN EC 325 MG TAB PO ONE ×2 (06:00→14:45)
[2018-05-18] MEDS ORDERED: diphenhydrAMINE 25 MG CAP PO ONE ×2 (06:00→14:45)
[2018-05-18] MEDS: METOPROLOL SUCCINATE XR 50 MG TAB PO SCH (08:28)
[2018-05-18] MEDS: ACETAMINOPHEN 325 MG TAB PO PRN (08:33)
--- NOTE | 2018-05-18 11:18 | PDMN ---
Medical Necessity Medical necessity: Change to IP as of 05/18/18 per MD and MCG M-89; los >2 mn for ongoing evaluation and tx of CP with pericardial effusion possibly r/t pacemaker; requiring further monitoring, cardiology consult with angiogram; Comorbid advanced age, hypertension
[2018-05-18] MEDS: FLUTICASONE NASAL 120 SPRAYS/16 GM MDI EACHNARE SCH (14:47)
[2018-05-18] MEDS: ASPIRIN 325 MG TAB PO SCH (14:47)
--- NOTE | 2018-05-18 15:19 | PDHPUP ---
History & Physical Update H&P update statement: This history and physical update is based on an assessment of the patient which was completed after admission or registration (within 24 hours), but prior to the surgery/procedure. H&P update: H&P reviewed & patient examined, no change in patient's condition since H&P completed (Please see my dicated consult dated 05/17/2018)
--- NOTE | 2018-05-18 15:20 | PDPROPOC ---
Sedation Plan of Care Sedation Plan of Care: vital signs stable, mental status noted, patient educated of risks, benefits, alternatives, patient can tolerate sedation ASA Classification: ASA 2 Planned drugs: fentanyl, midazolam Mallampati Score: Class 2 Mallampati Reference Image: Patient passed 3-3-2 rule?: Yes
[2018-05-18] MEDS ORDERED: LIDOCAINE 1% 300 MG/30 ML SDV ONE (15:29)
[2018-05-18] MEDS ORDERED: MIDAZOLAM 2 MG/2 ML VIAL ONE ×4 (15:29→16:08)
[2018-05-18] MEDS ORDERED: fentaNYL 100 MCG/2 ML INJ ONE ×2 (15:29→16:05)
[2018-05-18] MEDS ORDERED: IOPAMIDOL (ISOVUE-370) 150 ML BTL IV ONE (15:30)
[2018-05-18] MEDS ORDERED: ATROPINE SULFATE 1 MG/10 ML SYR IVP PRN (16:33)
--- NOTE | 2018-05-18 16:40 | PDDXCAT ---
Diagnostic Cath Note - . Date: 05/18/18 Miller Supervisor: Mamadou Indication: Class I/II angina, intolerance to med therapy or failure to respond , other (new onset angina) - Procedure Access: right groin Procedure: left heart catheterization, coronary angiography, left ventriculogram - Materials Left Heart Cath size: 6F Left Heart Cath materials: JL4.0, pigtail, Anejl's R - Findings-Left Heart Catheterization LM: Normal and bifurcates into the LAD and left circumflex LAD: Reaches apex. 30% mid vessel stenosis. Large branching diagonal vessel without disease LCX: Large vessel with 2 moderate-sized obtuse marginals. No significant coronary disease in the left circumflex or the marginal branches. RCA: Dominant. No significant coronary disease EDP: 21 LVEF: 65% Wall motion: Normal - Findings-Right Heart Catheterization AO: 149/61. There is no gradient upon pullback of the catheter from the left ventricle to the aorta. Complications: None Estimated blood loss: <50ml Closure method: manual pressure Assessment: Mild mid LAD disease, not significant enough to cause new onset angina. Plan: Continue cardiac risk factor modification and aggressive blood pressure management. Patient Problems: Problems Problem Status Onset Dyspnea Acute Pulmonary emboli Acute Chest pain Acute Dizziness Acute Hypertensive urgency Acute Chest pain Acute Leg wound, left Acute
--- NOTE | 2018-05-18 16:49 | HOSPPROG ---
Hospitalist Progress Note Assessment/Plan: CP and THOMASON - Trops neg, EKG non-ischemic, Veronica stress neg. Angiogram today showed non-occlusive CAD. Query symptomatic hypertensive response to exertion. Pericardial effusion - discussed with cards, small, no e/o tamponade. Apparently this was present on prior imaging and cardiology does not suspect this is contributing to symptoms. 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 Currently no CP or SOB. Objective: Vital Signs Temp Pulse Resp BP Pulse Ox 36.8 C 54 L 13 152/72 H 96 05/18/18 12:00 05/18/18 12:00 05/18/18 12:00 05/18/18 12:00 05/18/18 12:00 Laboratory Results 05/18/18 04:00 05/18/18 04:00 05/17/18 05/18/18 05/19/18 05:59 05:59 05:59 Intake Total 250 Balance 250 PT 13.7 SEC (12.0-15.0) 05/18/18 04:00 INR 1.03 (0.83-1.16) 05/18/18 04:00 - Physical Exam Constitutional: no apparent distress Eyes: PERRL Ears, Nose, Mouth, Throat: moist mucous membranes Cardiovascular: regular rate and rhythym Respiratory: no respiratory distress, clear to auscultation Gastrointestinal: normoactive bowel sounds, soft, non-tender abdomen Skin: warm Musculoskeletal: full muscle strength Neurologic: AAOx3 Psychiatric: interacting appropriately ICD10 Worksheet Patient Problems: Problems Problem Status Onset Chest pain Acute Chest pain Acute Dizziness Acute Dyspnea Acute Hypertensive urgency Acute Leg wound, left Acute Pulmonary emboli Acute
[2018-05-18] MEDS: GABAPENTIN 300 MG CAP PO SCH (20:42)
[2018-05-18] MEDS: LISINOPRIL 20 MG TAB PO SCH (20:42)
[2018-05-18] MEDS: ATORVASTATIN CALCIUM 40 MG TAB PO SCH (20:42)
[2018-05-19 08:52] VITALS: BP 127/65
[2018-05-19] MEDS: METOPROLOL SUCCINATE XR 50 MG TAB PO SCH (08:57)
[2018-05-19] MEDS: ASPIRIN 325 MG TAB PO SCH (08:58)
[2018-05-19] MEDS: FLUTICASONE NASAL 120 SPRAYS/16 GM MDI EACHNARE SCH (08:58)
--- NOTE | 2018-05-19 12:19 | PDDCSUM ---
Discharge Summary Discharge Summary: 82 yo female admitted with chest pain. Etiology remain unclear as she had a had an extensive cardiac w/u which is negative. At the time of discharge she is not having any chest pain, she in on RA, and her lung exam is unremarkable. BP was found to be elevated and her Lisinopril was increased. She was also started on a BB. She will f/u with Dr. malone in one week. DDX: CP and THOMASON - Trops neg, EKG non-ischemic, Veronica stress neg. Angiogram showed non -occlusive CAD. -reactive airway component? -none noticed here -allergic component? Pericardial effusion - discussed with cards, small, no e/o tamponade. Apparently this was present on prior imaging and cardiology does not suspect this is contributing to symptoms. Hypertension - improved control with increased lisinopril dose -cont higher dose lisinopril -diltiazem changed to BB Hyperlipidemia - cont statin Exam: NAD AAOX3 RRR CTA B S/NT/ND NO LE EDEMA MEDS: SEE MED REC F/U: PER ABOVE TOTAL TIME SPENT ON DC IS 35 MINS
--- NOTE | 2018-05-19 16:25 | CPEKG ---
Test Reason : OPEN Blood Pressure : / mmHG Vent. Rate : 057 BPM Atrial Rate : 057 BPM P-R Int : 192 ms QRS Dur : 091 ms QT Int : 443 ms P-R-T Axes : 078 022 046 degrees QTc Int : 432 ms Sinus rhythm Anteroseptal infarct, age indeterminate Confirmed by Perry Germain ([id number]) on 05/19/2018 4:24:27 PM Referred By: Confirmed By:Perry Germain
== END 2018-05-19 13:05 | disposition home or self-care (01) | DRG 287 ==
LOC: F2W 14:12 → OBSVTOIN 05-17 21:17
PROVIDERS: ADMIT Hospitalist; ATTEND Family Medicine
PROC: B2111ZZ Fluoroscopy of Multiple Coronary Arteries using Low Osmolar Contrast (ICD-10-PCS; principal; 2018-05-18)
PROC: B2151ZZ Fluoroscopy of Left Heart using Low Osmolar Contrast (ICD-10-PCS; principal; 2018-05-18)
PROC: 4A023N7 Measurement of Cardiac Sampling and Pressure, Left Heart, Percutaneous Approach (ICD-10-PCS; principal; 2018-05-18)
DX: R07.9 Chest pain, unspecified (principal); I10 Essential (primary) hypertension; E78.5 Hyperlipidemia, unspecified; I25.10 Atherosclerotic heart disease of native coronary artery without angina pectoris; G47.30 Sleep apnea, unspecified; Z95.0 Presence of cardiac pacemaker; Z86.711 Personal history of pulmonary embolism; Z23 Encounter for immunization
CPT/HCPCS: 84484-PO; A9500; G0008; G0378; J1644; J2250; J2785; J3010; Q9967

== ENCOUNTER → 2018-12-23 | Outpatient (CLI) | payer OTHER | LOC: FIMAGING 10:18 ==